=== PATIENT | male | born 1975 | race African-American/Black ===

== ENCOUNTER 2020-05-06 11:20 | Outpatient (CLI) | payer MEDICARE, SELFPAY ==
--- NOTE | ~2020-05-06 | XR_ITS ---
EXAMINATION: XR elbow RT min 3V DATE: 05/06/2020 11:53 INDICATION: Right elbow pain. TECHNIQUE: 4 views of right elbow were obtained. COMPARISON: None. FINDINGS: Bone alignment is normal. No fracture. There is mild elbow joint osteoarthritis characteriz ed by an osteophyte of proximal ulna. There is no elbow joint effusion. IMPRESSION: 1. Mild elbow joint osteoarthritis. Reviewed, dictated and finalized at location A. IFIED PERSONAL CHEF
== END 2020-05-06 11:21 | disposition home or self-care (01) ==
DX: M25.521 Pain in right elbow (principal); M19.021 Primary osteoarthritis, right elbow
CPT/HCPCS: 73080

== ENCOUNTER 2021-01-17 15:55 | Emergency (ER) | payer MEDICARE, SELFPAY ==
[2021-01-17 16:03] VITALS: BP 155/85; PULSE 57; RESP 16; TEMP 36.3; O2SAT 99
--- NOTE | 2021-01-17 16:24 | ED.ABDPAIN ---
HPI - Abdominal Pain General Chief Complaint: Abdominal Pain Stated Complaint: abd pain /vomiting Time Seen by Provider: 01/17/21 16:30 Source: patient and RN notes reviewed Mode of arrival: ambulatory Limitations: no limitations History of Present Illness HPI narrative: 45-year-old male presents with concern for acute vomiting and diarrhea. Reports symptoms started overnight. Reports he has been taking Zofran at home with no relief of vomiting. Reports he has been trying to drink Pedialyte, but continues to vomit. He denies decreased urine output. He denies abdominal pain. He denies fever. He denies upper respiratory symptoms. He reports he ate out at a restaurant yesterday, ate a burrito. Denies hemoptysis. Reports he has been vaccinated for Covid, denies known sick contacts. MD elicited complaint: other (Vomiting) Related Data Allergies Allergy/AdvReac Type Severity Reaction Status Date / Time No Known Allergies Allergy Verified 01/17/21 16:44 Review of Systems Review of Systems: CONSTITUTIONAL: Denies malaise, chills, sweats, or fever. ENT: Denies rhinorrhea, congestion, sinus pain, otalgia or sore throat. CARDIOVASCULAR: Denies chest pain, palpitations, or edema. RESPIRATORY: Denies cough or dyspnea. GASTROINTESTINAL: Denies abdominal pain, bloody, or mucous stools. Reports nausea, vomiting, dry heaving, diarrhea, MUSCULOSKELETAL: Denies myalgia. NEUROLOGIC: Denies headache. All systems reviewed & are unremarkable except as noted in HPI and below PMFSH Comments At time of signature, agree with nursing past medical, surgical, social and family history. There is no relevant family history pertinent to the presenting complaint Exam Narrative: GENERAL: Well-appearing, well-nourished, and in no acute distress. HEAD: Normocephalic, atraumatic. EYES: PERRLA, conjunctivae clear ENT: Nares clear. Mucous membranes moist. NECK: Supple. No lymphadenopathy CHEST: Speaks in full sentences. No respiratory distress. HEART: Regular rate and rhythm. ABDOMEN: Soft, flat, nondistended. No guarding, rebound tenderness, or rigid. Bowel sounds present in all four quadrants. SKIN: Warm, dry, no rash. NEURO: Alert and oriented x3. PSYCH: Normal mood and affect Course Course Emergency Course: Patient is aware of diagnosis, understands and agrees to treatment plan. Anticipatory guidance given. Patient agrees to follow-up as directed and is aware of reasons to seek care at the emergency department. Portions of this record may have been created with voice recognition software Vital Signs Vital signs: Vital Signs Temperature 97.3 F L 01/17/21 16:03 Pulse Rate 57 L 01/17/21 16:03 Respiratory Rate 16 01/17/21 16:03 Blood Pressure 155/85 H 01/17/21 16:03 Pulse Oximetry 99 01/17/21 16:03 Temperature 97.3 F L 01/17/21 16:03 Pulse Rate 57 L 01/17/21 16:03 Respiratory Rate 16 01/17/21 16:03 Blood Pressure 155/85 H 01/17/21 16:03 Pulse Oximetry 99 01/17/21 16:03 Reviewed. MDM - Abdominal Pain MDM Narrative Medical decision making narrative: No evidence of pancreatitis, AAA, cholecystitis, choledocholithiasis, cholangitis, mesenteric ischemia, small bowel obstruction, diverticulitis, colitis, appendicitis, or pelvic etiology such as testicular torsion. Patient has no history of peptic ulcer, H. pylori, chronic aspirin NSAID or corticosteroid use, chronic alcohol use, no history of inflammatory bowel disease, no history of active abdominal infection or malignancy. Patient has no history of hernia or intra-abdominal surgeries, patient denies absence of flatus, constipation, melena, hematemesis. Patient denies post-prandial pain. No pain-out of proportion. Exam findings show no acute concerns or changes; patient is non-toxic appearing and is in no distress. Patient is appropriate for outpatient treatment and follow-up. Critical Care Time Critical Care Time Critical Care Time: No Discharge Plan Dis
[2021-01-17] MEDS: PROMETHAZINE HCL 25 MG/ML AMPUL IM (16:46)
== END 2021-01-17 17:11 | disposition home or self-care (01) ==
PROVIDERS: Emergency Provider Nurse Practitioner
DX: R11.2 Nausea with vomiting, unspecified (principal)
CPT/HCPCS: 96372; 99213; G0463; J2550

== ENCOUNTER 2022-06-15 14:59 | Emergency (ER) | payer OTHER, MEDICARE, SELFPAY ==
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
[2022-06-15 15:14] VITALS: BP 126/85; PULSE 61; RESP 14; TEMP 36.4; O2SAT 100
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
== END 2022-06-15 16:55 | disposition home or self-care (01) ==
PROVIDERS: Emergency Provider Nurse Practitioner Family
DX: M25.562 Pain in left knee (principal); M54.50 Low back pain, unspecified
CPT/HCPCS: 72100; 73564; 99214; G0463

== ENCOUNTER 2022-10-02 07:27 | Outpatient (CLI) | payer MEDICARE, SELFPAY ==
--- NOTE | ~2022-10-02 | MR_ITS ---
EXAMINATION: MR lumbar spine wo con DATE: 10/02/2022 08:08 INDICATION: Low back pain. Bilateral leg numbness and pain. TECHNIQUE: Magnetic resonance imaging (MRI) of the lumbar spine was performed without intravenous con trast. Sequences included sagittal T2-weighted FSE, sagittal T2-weighted FS FSE, sagittal T1-weighted FSE, and axial T2-weighted FSE. COMPARISON: Lumbar spine MRI 07/21/2017 FINDINGS: There is 9 degrees levocurvature of lumbar spine. Vertebral body heights are normal. There are changes of anterior fusion procedure at L4-L5 with interbody device and anterior plate and screws . There is mildly decreased disc height at L2-L3 with endplate remodeling. The distal spinal cord sig nal intensity is normal. The conus medullaris is at T11-T12. The following disc levels are specifical ly discussed: L1-L2: The disc does not extend beyond the endplate margin. There is mild bilateral facet joint osteo arthritis. There is no neural foraminal stenosis. There is no central canal stenosis. L2-L3: The disc is bulging and has an annular fissure. There is mild bilateral facet joint osteoarthr itis. There is mild bilateral neural foraminal stenosis. There is mild central canal stenosis. L3-L4: The disc does not extend beyond the endplate margin. There is mild bilateral facet joint osteo arthritis. There is no neural foraminal stenosis. There is no central canal stenosis. L4-L5: There is severe bilateral facet joint osteoarthritis. There is mild bilateral neural foraminal stenosis. There is no central canal stenosis. L5-S1: There is a right foraminal protrusion with annular fissure. There is moderate bilateral facet joint osteoarthritis. There is mild bilateral neural foraminal stenosis. There is no central canal st enosis. IMPRESSION: 1. Mild lumbar spondylosis, worsened from 07/21/2017. 2. Anterior fusion procedure at L4-L5. Reviewed, dictated and finalized at location A.
== END 2022-10-02 07:28 | disposition home or self-care (01) ==
PROVIDERS: Visit Provider Nurse Practitioner Acute Care
DX: M47.26 Other spondylosis with radiculopathy, lumbar region (principal); M51.36 Other intervertebral disc degeneration, lumbar region; Z98.1 Arthrodesis status
CPT/HCPCS: 72148

== ENCOUNTER 2022-12-19 08:23 | Emergency (ER) | payer MEDICARE, SELFPAY ==
--- NOTE | 2022-12-19 08:24 | ED.NAVMDI ---
HPI - Nausea/Vomiting/Diarrhea General Chief complaint: Nausea/Vomiting/Diarrhea Stated complaint: Nausea/Vomiting Time Seen by Provider: 12/19/22 08:24 Source: patient Mode of arrival: ambulatory Limitations: no limitations History of Present Illness HPI Narrative: Jose Roberto is a 47-year-old male patient presenting to the clinic today with complaints nausea, vomiting, and diarrhea that just began this morning. He reports no fever, chills, body aches, or abdominal pain. Took 4 mg of ODT Zofran this morning and that did not help the symptoms. Reports that the Zofran is 2 years old. Has had this happen before and was given prescription for Zofran and and improved after a few days. He is currently dry heaving while in the clinic today. History of having bradycardia. He denies any chest pain, shortness of breath, visual changes, dizziness, or near syncopal symptoms. Related Data Allergies Allergy/AdvReac Type Severity Reaction Status Date / Time No Known Allergies Allergy Verified 06/15/22 15:14 Review of Systems Review of Systems: Pertinent positives per HPI. Patient denies any fever, chills, rash, headache, visual changes, dizziness, cough, runny nose, sore throat, shortness of breath, chest pain, palpitations, constipation, abdominal pain, or any urinary issues. PMFSH Surgical History Surgical History H/O cervical spine surgery H/O elbow surgery H/O knee surgery H/O lumbosacral spine surgery Comments At the time of my signature, I reviewed and agree with the nursing past medical, surgical, social, and family history. There is no relevant family history pertinent to the patient complaint. Exam Narrative: General: Well-developed, well nourished, ill-pale appearing. Head: Normocephalic, atraumatic. Cardio: Bradycardic- regular rate and rhythm, s1 and s2 normal, no murmur appreciated. Resp: Clear to auscultation bilaterally, no rhonchi, rales, wheezing or rubs. Abdomen: Soft, pliable, nondistended, bowel sounds hyperactive- present in all quadrants, non-tender to palpation, no organomegly, no CVAT tenderness. Course Course Emergency Course: Portions of this record may have been created with voice recognition software. Level of Care: Express Care Visit Vital Signs Vital signs: Vital Signs Temperature 35.3 C L 12/19/22 08:34 Pulse Rate 47 L 12/19/22 08:34 Respiratory Rate 20 12/19/22 08:34 Blood Pressure 152/84 H 12/19/22 08:34 Pulse Oximetry 100 12/19/22 08:34 Oxygen Delivery Room Air 12/19/22 08:34 Temperature 36.4 C L 12/19/22 09:19 Pulse Rate 44 L 12/19/22 09:19 Respiratory Rate 20 12/19/22 09:19 Blood Pressure 140/68 12/19/22 09:19 Pulse Oximetry 99 12/19/22 09:19 Oxygen Delivery Room Air 12/19/22 09:19 Vital signs reviewed MDM - Nausea/Vomiting/Diarrhea MDM Narrative Medical decision making narrative: At the time of visit patient is resting comfortably on exam table. COVID and influenza testing was completed and negative in the clinic today. Patient has already taken 4 mg of Zofran and this morning prior to arrival. Patient has a ride home. Will give 25 mg IM of promethazine. Patient still having some nausea but not actively vomiting/dry heaving in the clinic. Patient still slight pale. VS stable. Offered to send to the ED for further evaluation/fluids and he declined at this time. Will send a new prescription for Zofran. Supportive measures were discussed with the patient he voiced understanding discharge instructions and agrees to treatment plan. Differential Diagnosis Differential diagnosis: Likely food poisoning, gastroenteritis, dehydration and other (Acute nausea and vomiting) Lab Data Labs: Lab Results 12/19/22 Range/Units 08:50 POC SARS CoV-2 Ag Negative (Negative) Influenza A Screen Negative Reference Range
[2022-12-19 08:34] VITALS: BP 152/84; PULSE 47; RESP 20; TEMP 35.3; O2SAT 100
[2022-12-19] MEDS: PROMETHAZINE HCL 25 MG/ML AMPUL IM (08:51)
[2022-12-19 09:19] VITALS: BP 140/68; PULSE 44; RESP 20; TEMP 36.4; O2SAT 99
== END 2022-12-19 09:45 | disposition home or self-care (01) ==
PROVIDERS: Emergency Provider Nurse Practitioner Family
DX: K52.9 Noninfective gastroenteritis and colitis, unspecified (principal); Z20.822 Contact with and (suspected) exposure to COVID-19
CPT/HCPCS: 87426; 87804; 96372; 99213; C9803; G0463; J2550

== ENCOUNTER 2024-08-17 10:49 | Outpatient (CLI) | payer MEDICARE, SELFPAY ==
--- NOTE | ~2024-08-17 | MR_ITS ---
MRI of the left knee Clinical history: Pain Technique: Coronal proton density and proton density-weighted images, sagittal proton-density and T2 fat-sat images, and axial proton-density fat-saturated images were acquired. Findings: Anterior and posterior cruciate ligaments are intact. Medial collateral ligament and the la teral collateral ligament complex are intact. Popliteus tendon is intact. There is large oblique flap tear of the posterior horn of the medial meniscus extending to the body s egment. Lateral meniscus intact. There is mild to moderate patchy chondromalacia of the lateral patellar facet. Remaining articular ca rtilage in the knee is well preserved. Extensor mechanism is intact. Small joint effusion present with small Egan's cyst. Impression: Oblique flap tear of the medial meniscus, as detailed above. Mild chondromalacia of the patella. Small joint effusion with small Egan's cyst. Reviewed, dictated and finalized at [facility]. Impression: Oblique flap tear of the medial meniscus, as detailed above. Mild chondromalacia of the patella. Small joint effusion with small Egan's cyst.
--- OUTSIDE RECORDS SUMMARY | 2024-08-17 10:54 | XMS_ITS | Clinical Summary ---
Author Organization [facility] Address [address] [place] [address] Care Team Providers Care Blow Torch Burner Name Role Phone Unavailable Primary Care Provider Unavailabl e Source Comments [facility],non-owned Affiliates and Associated Physician Practices is amultiple site organization consisting of ambulatory clinics and hospital sitesin [place], [place], [place] and [place]. This disclosure is being madepursuant to the Care Everywhere program and may not contain all information available regarding this patient. Last updated 18.[facility] Allergies No known active allergies Medications * Be aware that medications may not be up to date on this document. Alwaysverify current medications with the patient. 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 Gender Identity Not on file Sexual Orientation Not on file Last Filed Vital Signs Vital Sign Reading Time Taken Comments Blood Pressure 139/87 08/25/2015 8:59 PM CDT Pulse 86 08/25/2015 8:59 PM CDT Temperature 36.7 C (98 F) 08/25/2015 8:59 PM CDT Respiratory Rate 18 08/25/2015 8:59 PM CDT Oxygen Saturation 99% 08/25/2015 8:59 PM CDT Inhaled Oxygen Concentration - - Weight 99.8 kg (220 lb) 08/25/2015 6:46 PM CDT Height 175.3 cm (5' 9 ) 08/25/2015 6:46 PM CDT Body Mass Index 32.49 08/25/2015 6:46 PM CDT Plan of Treatment Health Maintenance Due Date Last Done Comments COLOGUARD (AGES 45-75) - COL ON CA SCREENING 1974 COLON MONITORING 1974 COLONOSCOPY - COLON CA SCREENING 1974 CT COLONOGRAPHY - COLON CA SCREENING 1974 Colorectal Cancer Screening 1974 FIT - COLON CA SCREENING 1974 FLEX SIG - COLON CA SCREENING 1974 LIPID TESTING 1974 HIV SCREENING 1989 HEPATITIS C SCREENING 02/06/1992 DTAP/TDAP/TD VACCINES (1 - Tdap) 1993 HEPATITIS B VACCINE (1 of 3 - 19+ 3-dose series) 1993 COVID-19 VACCINE (1 - 2023-2 5 season) 2023 PNEUMOCOCCAL VACCINE 50+ (1 of 1 - PCV) 02/11/2024 ZOSTER VACCINE (1 of 2) 02/11/2024 DEPRESSION SCREENING 04/24/2024 INFLUENZA VACCINE (Season Ended) 2024 HIB VACCINE Aged Out No longer eligi ble based on patient's age to complete this topic HPV VACCINE Aged Out No longer eligi ble based on patient's age to complete this topic MENINGOCOCCAL (Group B) VACC INE SHARED DECISION-MAKING Aged Out No longer eligibl e based on patient's age to complete this topic MENINGOCOCCAL GROUPS A/C/Y/W VACCINE Aged Out No longer eligible b ased on patient's age to complete this topic Insurance MEDICARE
--- OUTSIDE RECORDS SUMMARY | 2024-08-17 10:54 | XMS_ITS | Continuity of Care Document ---
Author Organization [employer] [place] Address [address] [place] [address] [address] [place] [address] Phone Care Team Providers Care Cap Coverer Name Role Phone Darell Hutton Unavailable Unavailable Procedures Procedure Date Therapeutic Exercise Manual Therapy Hot or Cold Pack Dry Needling 1-2 muscles PT Evaluation Moderate Complexity Neuromuscular Re-Ed Dry Needling 1-2 muscles Progress Note Therapeutic Activities Neuromuscular Re-Ed Therapeutic Exercise Manual Therapy Therapeutic Activities Therapeutic Exercise Manual Therapy Therapeutic Activities Neuromuscular Re-Ed Therapeutic Exercise Manual Therapy Therapeutic Activities Neuromuscular Re-Ed Therapeutic Exercise Manual Therapy Therapeutic Activities Neuromuscular Re-Ed Therapeutic Exercise Manual Therapy Therapeutic Activities Neuromuscular Re-Ed Therapeutic Exercise Manual Therapy Therapeutic Activities Neuromuscular Re-Ed Therapeutic Exercise Manual Therapy Therapeutic Activities Neuromuscular Re-Ed Therapeutic Exercise Manual Therapy Therapeutic Activities Neuromuscular Re-Ed Therapeutic Exercise Manual Therapy Therapeutic Activities Neuromuscular Re-Ed Therapeutic Exercise Neuromuscular Re-Ed Therapeutic Exercise PT Evaluation Moderate Complexity Neuromuscular Re-Ed Therapeutic Exercise Therapeutic Activities Therapeutic Exercise Manual Therapy Dry Needling 1-2 muscles Therapeutic Activities Therapeutic Exercise Manual Therapy Therapeutic Activities Neuromuscular Re-Ed Therapeutic Exercise Manual Therapy Therapeutic Activities Therapeutic Exercise Manual Therapy Therapeutic Activities Therapeutic Exercise Manual Therapy Therapeutic Activities Neuromuscular Re-Ed Therapeutic Exercise Manual Therapy Therapeutic Activities Neuromuscular Re-Ed Therapeutic Exercise Manual Therapy Therapeutic Activities Therapeutic Exercise Manual Therapy Therapeutic Activities Neuromuscular Re-Ed Therapeutic Exercise Manual Therapy Therapeutic Activities Neuromuscular Re-Ed Therapeutic Exercise Manual Therapy Therapeutic Activities Therapeutic Exercise Manual Therapy Therapeutic Activities Therapeutic Exercise Manual Therapy Therapeutic Activities Therapeutic Exercise Manual Therapy Therapeutic Activities Therapeutic Exercise Manual Therapy Therapeutic Activities Neuromuscular Re-Ed Therapeutic Exercise Manual Therapy Therapeutic Activities Neuromuscular Re-Ed Therapeutic Exercise Manual Therapy Therapeutic Activities Neuromuscular Re-Ed Therapeutic Exercise Manual Therapy Therapeutic Activities Neuromuscular Re-Ed Therapeutic Exercise Manual Therapy Dry Needling 1-2 muscles Therapeutic Activities Neuromuscular Re-Ed Therapeutic Exercise Manual Therapy Neuromuscular Re-Ed Therapeutic Exercise Manual Therapy Hot or Cold Pack Dry Needling 3 or more muscles Therapeutic Activities Neuromuscular Re-Ed Therapeutic Exercise Manual Therapy Dry Needling 1-2 muscles Therapeutic Activities Neuromuscular Re-Ed Therapeutic Exercise Manual Therapy Therapeutic Activities Neuromuscular Re-Ed Therapeutic Exercise Dry Needling 1-2 muscles Therapeutic Activities Neuromuscular Re-Ed Manual Therapy Therapeutic Exercise Dry Needling 1-2 muscles PT Evaluation Moderate Complexity Therapeutic Exercise Neuromuscular Re-Ed Dry Needling 1-2 muscles Therapeutic Activities Neuromuscular Re-Ed Therapeutic Exercise Manual Therapy Therapeutic Activities Neuromuscular Re-Ed Therapeutic Exercise Dry Needling 1-2 muscles Therapeutic Activities Neuromuscular Re-Ed Therapeutic Exercise Manual Therapy Therapeutic Activities Neuromuscular Re-Ed Therapeutic Exercise Therapeutic Activities Neuromuscular Re-Ed Therapeutic Exercise Therapeutic Activities Neuromuscular Re-Ed Therapeutic Exercise Manual Therapy Dry Needling 1-2 muscles Therapeutic Activities Neuromuscular Re-Ed Therapeutic Activities Neuromuscular Re-Ed Therapeutic Activities Neuromuscular Re-Ed Therapeutic Activities Neuromuscular Re-Ed Therapeutic Activities Neuromuscular Re-Ed Therapeutic Exercise Manual Therapy PT Evaluation Moderate Complexity Neuromuscular Re-Ed Therapeutic Exercise Advance Directives Directive Yes / No Effective Date File Name No Information Encounters Encounter Description Practice Location Reason(s) For Visit Diagnoses Date Provider Providers Copied on Encounter [facility], [id number], tel:[phone] [place] No Information Jul- Analilia Hightower [address] [facility], [address], [place], [place], [facility] [place], [place]. tel:[phone] [facility], [id number], tel:[phone] [place] No Information Apr-0 5 Analilia Hightower [address] [facility], [address], [place], [address], [place]. tel:[phone] Referring Provider: Maryellen Rangel [address] [place], [address]. tel:[phone] [address], [place], [place], [address], [place] tel:[phone] [place] No Information 0 5 Analilia Lozoya. [address] [facility], [address], [place], [address], [place]. tel:[phone] Referring Provider: Maryellen Rangel [address] [place], [address]. tel:[phone], [place], [place], [address], [place] tel:[phone] [place] No Information 4 Hodges Eva. . Referring Provider: Sergio Miller, [address] [place] [address], [address]. tel:[phone] [address], [place], [place], [id number], [place] tel:[phone] [place] No Information 0 4 Hodges Eva. . Referring Provider: Sergio Miller, [address] [place] [address], [address]. tel:[phone], [place], [place], [address], [place] tel:[phone] [place] No Information 0 4- 4 Hodges Eva. . Referring Provider: Sergio Miller, [address] [place] [address], [address]. tel:[phone] [address], [place], [place], [address], [place] tel:[phone] [place] No Information Dec-3 0-202 4 Hodges Eva. . Referring Provider: Sergio Miller, [address] [address], [place], [address]. tel:[phone] [facility], [address], [place], [place], [address], [place] tel:[phone] [place] No Information Sep-2 4 Hodges Eva. . Referring Provider: Sergio Miller, [address] [place] [address], [place], [address]. tel:[phone] [facility], [address], [place], [place], [address], [place] tel:[phone] [place] No Information Sep-2 4 Hodges Eva. . Referring Provider: Sergio Miller, [address] [place] [address], [place], [address]. tel:[phone] [facility], [address] [facility], [place], [place], [address], [place] tel:[phone] [place] No Information Sep-2 0 4 Hodges Eva. . Referring Provider: Sergio Miller, [address] [place] [address], [place], [address]. tel:[phone] [facility], [address], [place], [place], [address], [place] tel:[phone] [place] No Information Sep-1 4 Porsche Elias. . Referring Provider: Sergio Miller, [address] [place] [address], [place], [address]. tel:[phone] [facility], [address], [place], [place], [address], [place] tel:[phone] [place] No Information Sep-1 4 Porsche Elias. . Referring Provider: Sergio Miller, [address] [place] [address], [place], [address]. tel:[phone] [facility], [place], [place], [address], [place] tel:[phone] [place] No Information Sep-0 9-202 4 Porsche Elias. . Referring Provider: Sergio Miller, [address] [place] [address], [place], [address]. tel:[phone] [facility], [address] [facility], [place], [place], [address], [place] tel:[phone] [place] No Information Sep-0 6-202 4 Porsche Elias. . Referring Provider: Sergio Miller, [address] [place] [address], [place], [address]. tel:[phone] [facility] [address] [place], [place] [address], [place], [place], [address], [place] tel:[phone] [place] No Information Sep-0 4-202 4 Porsche Elias. . Referring Provider: Sergio Miller, [address] [place] [address], [place], [address]. tel:[phone] [facility] [address] [facility], [place], [address], [place] tel:[phone] [place] No Information Mar-2 8-202 4 Muehl Darell. [address] [facility], [address], [place], [place], [facility] [place], [place]. tel:[phone] [address], [place], [place], [address], [place] tel:[phone] [place] No Information Mar-2 6-202 4 Muehl Darell. [address] [facility], [address], [place], [address], [place]. tel:[phone] [facility] [address] [place], [place] [address], [place], [place], [address], [place] tel:[phone] [place] No Information Mar-1 2-202 4 Muehl Darell. [address] [facility], [address], [place], [facility] [place], [place]. tel:[phone] [facility] [address], [place], [address], [place] tel:[phone] [place] No Information Mar-0 7- 4 Muehl Darell. [address] [facility], [address], [place], [facility] [place], [place]. tel:[phone] [facility] [address], [place], [place], [address], [place] tel:[phone] [place] No Information Mar-0 5-202 4 Muehl Darell. [address] [place] [address], [address], [place], [address], [place]. tel:[phone], [place], [place], [address], [place] tel:[phone] [place] No Information Feb-2 9 4 Muehl Darell. [address] [place] [address], [address], [place], [facility] [place], [place]. tel:[phone] [facility] [address], [place], [place], [address], [place] tel:[phone] [place] No Information Feb-2 7 4 Muehl Darell. [address] [place] [address], [address], [place], [facility] [place], [place]. tel:[phone], [place], [place], [address], [place] tel:[phone] [place] No Information Feb-2 3-202 4 Muehl Darell. [address] [place] [address], [address], [place], [facility] [place], [place]. tel:[phone] [facility] [address], [place], [place], [address], [place] tel:[phone] [place] No Information Feb-2 0-202 4 Muehl Darell. [address] [place] [address], [address], [place], [facility], [place]. tel:[phone], [place], [place], [address], [place] tel:[phone] [place] No Information 1 - 4 Muehl Darell. [address] [facility], [address], [place], [address], [place]. tel:[phone] [facility] [address], [place], [place], [address], [place] tel:[phone] [place] No Information 1 3 4 Muehl Darell. [address] [place] [address], [address], [place], [address], [place]. tel:[phone] [facility] [address], [place], [place], [address], [place] tel:[phone] [place] No Information b-0 8 4 Muehl Darell. [address] [place] [address], [address], [place], [address], [place]. tel:[phone] [facility] [address], [place], [address], [place] tel:[phone] [place] No Information 0 4 Muehl Darell. [address] [place] [address], [address], [place], [address], [place]. tel:[phone], [place], [place], [address], [place] tel:[phone] [place] No Information 0 4 Muehl Darell. [address] [place] [address], [address], [place], [address], [place]. tel:[phone] [facility] [address], [place], [place], [address], [place] tel:[phone] [place] No Information 4 Muehl Darell. [address] [place] [address], [address], [place], [address], [place]. tel:[phone], [place], [place], [address], [place] tel:[phone] [place] No Information 4 Muehl Darell. [address] [facility], [address], [place], [address], [place]. tel:[phone] [facility] [address], [place], [place], [address], [place] tel:[phone] [place] No Information 4 Muehl Darell. [address] [place] [address], [address], [place], [address], [place]. tel:[phone] [facility] [address] [place], [place] [address], [place], [place], [address], [place] tel:[phone] [place] No Information 4 Muehl Darell. [address] [place] [address], [address], [place], [address], [place]. tel:[phone] [facility] [address] [place], [place] [address], [place], [place], [address], [place] tel:[phone] [place] No Information 4 Francisca Haines. . [facility] [address], [place], [place], [address], [place] tel:[phone] [place] No Information 4 Muehl Darell. [address] [place] [address], [address], [place], [address], [place]. tel:[phone], [place], [place], [address], [place] tel:[phone] [place] No Information - 4 Muehl Darell. [address] [place] [address], [address], [place], [address], [place]. tel:[phone] [facility] [address], [place], [place], [address], [place] tel:[phone] [place] No Information Gregg-0 2-202 4 Muehl Darell. [address] [facility], [address], [place], [address], [place]. tel:[phone], [place], [place], [address], [place] tel:[phone] [place] No Information Dec-2 8-202 3 Muehl Darell. [address] [place] [address], [address], [place], [address], [place]. tel:[phone], [place], [place], [address], [place] tel:[phone] [place] No Information Dec-2 - 3 Muehl Darell. [address] [place] [address], [address], [place], [address], [place]. tel:[phone], [place], [place], [address], [place] tel:[phone] [place] No Information Dec-1 9- 3 Muehl Darell. [address] [place] [address], [address], [place], [address], [place]. tel:[phone], [place], [place], [address], [place] tel:[phone] [place] No Information May-2 6- 3 Muehl Darell. [address] [place] [address], [address], [place], [address], [place]. tel:[phone], [place], [place], [address], [place] tel:[phone] [place] No Information May-2 2-202 3 Muehl Darell. [address] [place] [address], [address], [place], [address], [place]. tel:[phone], [place], [place], [address], [place] tel:[phone] [place] No Information August-1 9- 3 Muehl Darell. [address] [place] [address], [address], [place], [address], [place]. tel:[phone] [facility] [address] [facility] [facility], [place], [place], [address], [place] tel:[phone] [place] No Information May-1 5- 3 Muehl Darell. [address] [place] [address], [address], [place], [address], [place]. tel:[phone] [facility] [address] [facility], [place], [place], [address], [place] tel:[phone] [place] No Information May-1 2-202 3 Muehl Darell. [address] [place] [address], [address], [place], [address], [place]. tel:[phone] [facility] [address] [facility], [place], [place], [address], [place] tel:[phone] [place] No Information May-0 9- 3 Muehl Darell. [address] [place] [address], [address], [place], [address], [place]. tel:[phone] [facility] [address] [facility], [place], [place], [address], [place] tel:[phone] [place] No Information May-0 5-202 3 Modglin Erik. . [facility] [facility] [address], [place], [place], [address], [place] tel:[phone] [place] No Information May-0 2-202 3 Dellamano Zaki. . [facility] [facility], [place], [place], [address], [place] tel:[phone] [place] No Information Apr-2 8- 3 Dellamano Zaki. . [facility] [facility], [place], [place], [address], [place] tel:[phone] [place] No Information Apr-2 7-202 3 Muehl Darell. [address] [place] [address], [address], [place], [facility], . tel:[phone] [address] [facility] [address], [place], [place], [address], tel:[phone] [place] No Information 3 Analilia Lozoya. [address] [facility], [facility] [address], [place], [facility], . tel:[phone], [place], [place], [address], tel:[phone] [place] No Information 3 Analilia Lozoya. [address] [facility], [facility] [address], [place], [place], [facility], . tel:[phone] Family History Family Member Type Diagnosis Age At Onset No Information Payers Payer name Insurance type Covered libertarian ID Authoriza tishravan(s) [facility] [employer] [place] [id number] Social History Type Description Quantity Date Captured Comments Sex Male Smoking Status No Information Chief Complaint And Reason For Visit No Information Reason For Referral Reason For Referral No Information Plan Of Treatment Date Type Action Status Referral Ordered: Referrals: Specialist. Evaluate and Treat (related to Adjustment disorder with depressed mood) ordered Referral Ordered: Depression: Depression management program timeframe: 1 Day. (related to Depression) ordered Referral Ordered: Clinical Psychology (related to Depression) ordered Appointment Jose Roberto Barrett Do Lenz 08/21 BOOKED History Of Present Illness Encounter Date Complaint History Of Prese nt Illness No Information Functional Status Date Functional Assessmen t No Information Instructions Date Instruction Additional Infor mation Dietary needs education Related to Overweight Prescribed activity/exercise edu cation Related to Overweight Assessments Type Assessment Date No Information Patient Care Teams Name Effective Dates (start - stop) Status Members No Information
--- OUTSIDE RECORDS SUMMARY | 2024-08-17 10:54 | XMS_ITS | Patient Health Record ---
Author Organization [facility] Address [address] [place] [address] Care Team Providers Care Green Building Engineer Name Role Phone Soniya Beauchamp MD Primary Care Provider Jose Daniel Patrick Unavailable [phone] Philly Amanda Unavailable [phone] Migration, Provider Unavailable Unavailable Raudel Roman Unavailable [phone] Allergies No Known Allergies Reason For Referral No Information Medications Medication SIG (Take, Route, Frequency, Duration) Notes Start Date End Date Status Spravato (84 MG Dose) 28 MG/DEVICE 3 sprays in each nostril Nasally every two week for 1 days Active Rosuvastatin Calcium 10 MG Oral for 90 Days Not-Taking Immunizations Vaccine Route Administration Date Status Comme nts Novel [id number], preservative free Unknown 04/20/2021 Administered [employer] Covid-19 Vac cine 2nd dose Unknown 04/20/2021 Administered Social History Tobacco Use: Social History Observation Description Date Details (start date - stop date) Never Smoker NA - NA Sex Assigned At : Social History Observation Description Sex Assigned At Male Household Question Answer Notes Number of adults in household: 1 Tobacco Control (Standard) Question Answer Notes Tobacco use: Nonsmoker Problems Problem Type SNOMED Code ICD Code Onset Dates Problem Status W/U Status Risk Notes Problem Severe recurrent major depression without psychotic features (57734304) Major depressive disorder, recurrent severe without psychotic features (F33.2) Active confirmed Problem Generalized anxiety disorder (21620126) Generalized anxiety disorder (F41.1) Active confirmed Problem Posttraumatic stress disorder (08402539) Post-traumatic stress disorder, chronic (F43.12) Active confirmed Problem 09414587 MDD (recurrent major depressive disorder) in remission (F33.40) Active confirmed Problem 401651050 Marijuana use (F12.90) Active confirmed Problem 99537832 MDD (major depressive disorder), recurrent, in partial remission (F33.41) Active confirmed Vital Signs Heart Rate 103 /min 07/24/2024 Height-cm 175.26 cm 07/24/2024 Oximetry 98 % 07/24/2024 Blood pressure diastolic 89 mm Hg 07/24/2024 Weight-kg 76.3 kg 07/03/2024 Height 69.00 in 07/24/2024 Blood pressure systolic 98 mm Hg 07/24/2024 Weight 168.2 lbs 07/03/2024 BMI 24.84 kg/m2 07/03/2024 Encounters Encounter Location Date Provider Diagnosis [facility] [address] [place] [address] 09/01/2023 Jose Daniel Shiraz Major depressive disorder, recurrent severe without psychotic features F33.2 [facility] [address] [facility] [address] [place] [address] 09/28/2023 Jose Daniel Shiraz Major depressive disorder, recurrent severe without psychotic features F33.2 [facility] [address] [place] [address] 11/08/2023 Jose Daniel Shiraz Major depressive disorder, recurrent severe without psychotic features F33.2 and Generalized anxiety disorder F41.1 [facility] [address] [place] [address] 11/15/2023 Raudel Clubb Major depressive disorder, recurrent severe without psychotic features F33.2 [facility] [address] [place] [address] 11/22/2023 Raudel Clubb Major depressive disorder, recurrent severe without psychotic features F33.2 [facility] [address] [place] [address] 11/29/2023 Raudel Clubb Major depressive disorder, recurrent severe without psychotic features F33.2 [facility] [address] [place] [address] 12/06/2023 Raudel Clubb Major depressive disorder, recurrent severe without psychotic features F33.2 [facility], [facility] [address] [place] [address] 12/13/2023 Raudel Clubb Major depressive disorder, recurrent severe without psychotic features F33.2 [facility], [facility] [address] [place] [address] 12/20/2023 Raudel Clubb Major depressive disorder, recurrent severe without psychotic features F33.2 [facility], [facility] [address] [place] [address] 12/27/2023 Raudel Clubb Major depressive disorder, recurrent severe without psychotic features F33.2 [facility], [facility] [address] [place] [address] 01/05/2024 Jose Daniel Shiraz Major depressive disorder, recurrent severe without psychotic features F33.2 ; Generalized anxiety disorder F41.1 and Post-traumatic stress disorder, chronic F43.12 [facility], [facility] [address] [facility] [address] [place] [address] 01/10/2024 Raudel Clubb Recurrent major depressive disorder, in full remission F33.42 [facility], [facility] [address] [facility] [address] [place] [address] 02/09/2024 Jose Daniel Shiraz Major depressive disorder, recurrent severe without psychotic features F33.2 ; Generalized anxiety disorder F41.1 and Post-traumatic stress disorder, chronic F43.12 [facility], [facility] [address] [address] 02/20/2024 Raudel Clubb MDD (major depressiv e disorder), recurrent, in partial remission F33.41 [facility], [facility] [address] [facility] [address] [place] [address] 02/28/2024 Raudel Clubb MDD (major depressiv e disorder), recurrent, in partial remission F33.41 and Marijuana use F12.90 [facility], [facility] [address] [facility] [address] [place] [address] 03/13/2024 Raudel Clubb MDD (recurrent major depressive disorder) in remission F33.40 [facility], [facility] [address] [facility] [address] [place] [address] 03/27/2024 Jose Daniel Shiraz [facility], [facility] [address] [place] [address] 04/10/2024 Philly Amanda Major depressive disorder, recurrent severe without psychotic features F33.2 [facility], [facility] [address] [place] [address] 05/01/2024 Raudel Clubb MDD (recurrent major depressive disorder) in remission F33.40 [facility], [facility] [address] [place] [address] 05/15/2024 Raudel Clubb MDD (recurrent major depressive disorder) in remission F33.40 [facility], [facility] [address] [place] [address] 05/23/2024 Jose Daniel Shiraz Major depressive disorder, recurrent severe without psychotic features F33.2 ; Generalized anxiety disorder F41.1 and Post-traumatic stress disorder, chronic F43.12 [facility], [facility] [address] [place] [address] 05/29/2024 Raudel Clubb [facility], [facility] [address] [place] [address] 06/19/2024 Raudel Clubb Major depressive disorder, recurrent severe without psychotic features F33.2 [facility], [facility] [address] [place] [address] 07/03/2024 Jose Daniel Shiraz Encounter for screening for depression Z13.31 ; Encounter for screening for cardiovascular disorders Z13.6 ; Major depressive disorder, recurrent severe without psychotic features F33.2 ; Generalized anxiety disorder F41.1 and Post-traumatic stress disorder, chronic F43.12 [facility], [facility] [address] [place] [address] 07/10/2024 Raudel Clubb Major depressive disorder, recurrent severe without psychotic features F33.2 ; Encounter for screening for depression Z13.31 and Encounter for screening for cardiovascular disorders Z13.6 [facility], [facility] [address] [place] [address] 07/24/2024 Raudel Clubb Major depressive disorder, recurrent severe without psychotic features F33.2 and Encounter for screening for cardiovascular disorders Z13.6 [facility], [facility] [address] [place] [address] 08/15/2024 Jose Daniel Shiraz [facility], [facility] [address] [place] [address] 07/09/2024 Jose Daniel Shiraz [facility], [facility] [address] [place] [address] 08/23/2023 Provider Migration [facility], [facility] [address] [place] [address] 09/01/2023 Provider Migration [facility], [facility] [address] [place] [address] 09/06/2023 Provider Migration [facility], [facility] [address] [place] [address] 09/07/2023 Provider Migration [facility], [facility] [address] [place] [address] 09/09/2023 Provider Migration [facility], [facility] [address] [place] [address] 09/10/2023 Provider Migration [facility], [facility] [address] [place] [address] 09/13/2023 Provider Migration [facility], [facility] [address] [place] [address] 11/15/2023 Jose Daniel Shiraz Major depressive disorder, recurrent severe without psychotic features F33.2 [facility], [facility] [address] [place] [address] 11/29/2023 Jose Daniel Shiraz Major depressive disorder, recurrent severe without psychotic features F33.2 [facility], [facility] [address] [place] [address] 12/20/2023 Jose Daniel Shiraz Major depressive disorder, recurrent severe without psychotic features F33.2 [facility], [facility] [address] [place] [address] 12/28/2023 Jose Daniel Shiraz [facility], [facility] [address] [place] [address] 01/17/2024 Jose Daniel Shiraz Recurrent major depressive disorder, in full remission F33.42 [facility], [facility] [address] [place] [address] 02/15/2024 Jose Daniel Shiraz [facility], [facility] [address] [place] [address] 03/05/2024 Jose Daniel Shiraz [facility] [address] [place] [address] 07/08/2024 Jose Daniel [facility] [address] [place] [address] 08/14/2024 Jose Daniel [facility] [address] [place] [address] 10/06/2023 Jose Daniel [facility] [address] [place] [address] 04/10/2024 Philly Amanda Major depressive disorder, recurrent severe without psychotic features F33.2 Assessments Encounter Date Diagnosis (ICD Code) Assessment Notes Treatment Notes Treatment Clinical Notes Section Notes 11/29/2023 Major depressive disorder, recurrent severe without psychotic features (ICD-10 - F33.2) 02/28/2024 MDD (major depressive disorder), recurrent, in partial remission (ICD-10 - F33.41) 1. Depression - Patient reports no depression. - Plan: Continue to monitor for mood changes or depressive symptoms during follow-ups. 2. Anxiety - Patient reports experiencing anxiety. - Plan: a. Assess severity and frequency of anxiety symptoms. b. Consider initiating appropriate anxiolytic medication. c. Recommend non-pharmacologic al interventions (e.g., cognitive-behavio ral therapy, relaxation techniques). 3. Suicidal Ideation and Self-harm - Patient denies thoughts of suicide or self-harm. - Plan: Continue monitoring for changes in mental status or emergence of suicidal ideation during follow-ups. 4. Homicidal Ideation - Patient denies thoughts of harming others. - Plan: Continue monitoring for changes in mental status or emergence of homicidal ideation during follow-ups. 5. Psychotic Symptoms - Patient denies experiencing hallucinations, delusions, or paranoia. - Plan: Continue monitoring for changes in mental status or emergence of psychotic symptoms during follow-ups. 6. Appetite - Patient reports normal appetite. - Plan: Continue monitoring for changes in appetite or weight during follow-ups. 7. Sleep - Patient reports normal sleep patterns. - Plan: Continue monitoring for changes in sleep quality or quantity during follow-ups. 8. marijuana use - pt reported marijuana use before and after spravato treatments. - pt is in precontemplation stage of change. plan: discussed the negative effects marijuana use has on mental illness and medication metabolism 9. Physical complaints - pt reports brain zaps during treatment. he reports that he gets these symptoms when at home. - Plan: a. encouraged the patient to make an apt with PCP. b. advised not to use marijuana, as this can have neurological effects, especially during spravato treatment. 01/17/2024 Recurrent major depressive disorder, in full remission (ICD-10 - F33.42) 02/09/2024 Major depressive disorder, recurrent severe without psychotic features (ICD-10 - F33.2) Anxiety - Assessment: Patient reports significant improvement in anxiety levels, stating Yeah, my anxiety is low. - Plan: - Continue current treatment plan. - Encourage patient to practice deep breathing exercises and guided meditation to manage anxiety in triggering situations. Depression - Assessment: Patient denies any current depressive symptoms, stating I don't have no depression or anything like that. - Plan: - Continue monitoring patient's mood and mental health status. Anger Management - Assessment: Patient recognizes the need to improve their reaction to certain situations and is working on managing their anger. Patient reports getting frustrated over minor issues but is learning to control reactions. - Plan: - Encourage patient to continue practicing coping strategies, such as deep breathing exercises and guided meditation, to manage anger in triggering situations. Sleep Disturbance - Assessment: Patient reports poor sleep quality and lack of deep sleep, stating And my sleep is no good. - Plan: - Encourage patient to practice good sleep hygiene, guided meditation, and relaxation techniques to improve sleep quality. - Discussed potential risks and benefits of using sleeping pills, including rebound insomnia, and patient agreed to continue with non-pharmacologic al interventions. Spravato Treatment - Assessment: Patient is currently receiving Spravato once a week and reports improvement in their mental health. - Plan: - Transition patient to Spravato every 10 days until the end of February, followed by a reduction to every 2 weeks. - Patient agrees with the transition plan. - Monitor patient's response to the adjusted treatment schedule and make further adjustments as needed. Follow-up - Plan: - Schedule follow-up appointments for Spravato treatment as discussed. - Continue monitoring patient's mental health status, sleep quality, and response to treatment during subsequent visits. 06/19/2024 Major depressive disorder, recurrent severe without psychotic features (ICD-10 - F33.2) continue current treatment as prescribed by primary psychiatric care provider. 02/20/2024 MDD (major depressive disorder), recurrent, in partial remission (ICD-10 - F33.41) 1. Depression - Patient rates depression as 0/10. - No reported thoughts of suicide or self-harm. - Plan: a. Continue current treatment plan. b. Monitor for any changes in mood or depressive symptoms. 2. Anxiety - Patient rates anxiety as 1/10. - Plan: a. Continue current treatment plan. b. Monitor for any changes in anxiety levels. 3. Sleep - Patient reports getting 8 hours of sleep per night. - Plan: a. Encourage maintaining good sleep hygiene. b. Monitor for any changes in sleep patterns. 4. Appetite - Patient reports a decent appetite and has been cooking more for himself. - Patient notes he's been spoiling himself a little bit with his cooking. - Plan: a. Encourage maintaining a balanced diet and regular meal times. b. Monitor for any changes in appetite or eating habits. 5. Medication - No reported changes in medication. - Plan: a. Continue current medication regimen. b. Monitor for any side effects or need for adjustments. 6. Physical complaints - Patient reports no physical complaints. - Plan: a. Encourage regular exercise and self-care activities. b. Monitor for any new or worsening physical symptoms. 7. Other - No reported hallucinations, delusions, or paranoia. - No thoughts of hurting others. 02/28/2024 Marijuana use (ICD-10 - F12.90) 1. Depression - Patient reports no depression. - Plan: Continue to monitor for mood changes or depressive symptoms during follow-ups. 2. Anxiety - Patient reports experiencing anxiety. - Plan: a. Assess severity and frequency of anxiety symptoms. b. Consider initiating appropriate anxiolytic medication. c. Recommend non-pharmacologic al interventions (e.g., cognitive-behavio ral therapy, relaxation techniques). 3. Suicidal Ideation and Self-harm - Patient denies thoughts of suicide or self-harm. - Plan: Continue monitoring for changes in mental status or emergence of suicidal ideation during follow-ups. 4. Homicidal Ideation - Patient denies thoughts of harming others. - Plan: Continue monitoring for changes in mental status or emergence of homicidal ideation during follow-ups. 5. Psychotic Symptoms - Patient denies experiencing hallucinations, delusions, or paranoia. - Plan: Continue monitoring for changes in mental status or emergence of psychotic symptoms during follow-ups. 6. Appetite - Patient reports normal appetite. - Plan: Continue monitoring for changes in appetite or weight during follow-ups. 7. Sleep - Patient reports normal sleep patterns. - Plan: Continue monitoring for changes in sleep quality or quantity during follow-ups. 8. marijuana use - pt reported marijuana use before and after spravato treatments. - pt is in precontemplation stage of change. plan: discussed the negative effects marijuana use has on mental illness and medication metabolism 9. Physical complaints - pt reports brain zaps during treatment. he reports that he gets these symptoms when at home. - Plan: a. encouraged the patient to make an apt with PCP. b. advised not to use marijuana, as this can have neurological effects, especially during spravato treatment. 01/10/2024 Recurrent major depressive disorder, in full remission (ICD-10 - F33.42) 07/03/2024 Encounter for screening for depression (ICD-10 - Z13.31) 07/10/2024 Major depressive disorder, recurrent severe without psychotic features (ICD-10 - F33.2) continue current treatment as prescribed by primary psychiatric care provider 07/24/2024 Major depressive disorder, recurrent severe without psychotic features (ICD-10 - F33.2) continue current treatment as prescribed by primary psychiatric care provider SPRAVATO can cause serious side effects, including: Sedation, dissociation, and respiratory depression. SPRAVATO may cause sleepiness (sedation), fainting, dizziness, spinning sensation, anxiety, or feeling disconnected from yourself, your thoughts, feelings, space and time (dissociation), and breathing problems (respiratory depression and respiratory arrest). Tell your healthcare provider right away if you feel like you cannot stay awake or if you feel like you are going to pass out. Your healthcare provider must monitor you for serious side effects for at least 2 hours after taking SPRAVATO. Your healthcare provider will decide when you are ready to leave the healthcare setting. Abuse and misuse. There is a risk for abuse and misuse with SPRAVATO, which may lead to physical and psychological dependence. Your healthcare provider should check you for signs of abuse, misuse, and dependence before and during treatment. Tell your healthcare provider if you have ever abused or been dependent on alcohol, prescription medicines, or street drugs. Your healthcare provider can tell you more about the differences between physical and psychological dependence in drug addiction. SPRAVATO Risk Evaluation and Mitigation Strategy (REMS). Because of the risks for sedation, dissociation, respiratory depression, and abuse and misuse, SPRAVATO is only available through a restricted program called the SPRAVATO Risk Evaluation and Mitigation Strategy (REMS) Program. SPRAVATO can only be administered at healthcare settings certified in the SPRAVATO REMS Program. Patients treated in outpatient healthcare settings (such as medical offices and clinics) must be enrolled in the program. Increased risk of suicidal thoughts and actions. Antidepressant medicines may increase suicidal thoughts and actions in some people 24 years of age and younger, especially within the first few months of treatment or when the dose is changed. SPRAVATO is not for use in children. Depression and other serious mental illnesses are the most important causes of suicidal thoughts and actions. Some people may have a higher risk of having suicidal thoughts or actions. These include people who have (or have a family history of) depression or a history of suicidal thoughts or actions. How can I watch for and try to prevent suicidal thoughts and actions in myself or a family member? Pay close attention to any changes, especially sudden changes, in mood, behavior, thoughts, or feelings, or if you develop suicidal thoughts or actions. Tell your healthcare provider right away if you have any new or sudden changes in mood, behavior, thoughts, or feelings, or if you develop suicidal thoughts or actions. Keep all follow-up visits with your healthcare provider as scheduled. Call your healthcare provider between visits as needed, especially if you have concerns about symptoms. Tell your healthcare provider or get emergency help right away if you or your family member have any of the following symptoms, especially if they are new, worse, or worry you: thoughts about suicide or dying new or worse depression feeling very agitated or restless trouble sleeping (insomnia) acting aggressive, being angry or violent an extreme increase in activity and talking (dalton) suicide attempts new or worse anxiety panic attacks new or worse irritability acting on dangerous impulses other unusual changes in behavior or mood Do not drive, operate machinery, or do anything where you need to be completely alert after taking SPRAVATO. Do not take part in these activities until the next day following a restful sleep. Increased blood pressure. SPRAVATO can cause a temporary increase in your blood pressure that may last for about 4 hours after taking a dose. Your healthcare provider will check your blood pressure before taking SPRAVATO and for at least 2 hours after you take SPRAVATO. Tell your healthcare provider right away if you get chest pain, shortness of breath, sudden severe headache, change in vision, or seizures after taking SPRAVATO. Problems with thinking clearly. Tell your healthcare provider if you have problems thinking or remembering. Bladder problems. Tell your healthcare provider if you develop trouble urinating, such as a frequent or urgent need to urinate, pain when urinating, or urinating frequently at night. The most common side effects of SPRAVATO include: feeling disconnected from yourself, your thoughts, feelings and things around you dizziness nausea feeling sleepy spinning sensation decreased feeling of sensitivity (numbness) feeling anxious lack of energy increased blood pressure vomiting feeling drunk headache feeling very happy or excited If these common side effects occur, they usually happen right after taking SPRAVATO and go away the same day. 03/13/2024 MDD (recurrent major depressive disorder) in remission (ICD-10 - F33.40) Continue current treatment as prescribed by primary psychiatric care provider. 1. Depression - Patient rates depression as 0/10. - No current thoughts of suicide or self-harm. - Continue to monitor depressive symptoms - Encourage patient to report any changes in mood or new symptoms. 2. Anxiety - Patient rates anxiety as 0/10. - Continue to monitor anxiety symptoms during follow-up visits. - Encourage patient to report any changes in anxiety levels or new symptoms. 3. Sleep - Patient reports getting 6-7 hours of sleep per night. - Encourage patient to maintain good sleep hygiene. 4. Appetite - Patient reports a good appetite. - Encourage patient to maintain a balanced diet. 5. Medications - Patient reports no current medications. - Patient confirms medication status remains unchanged. 6. Physical Complaints - Patient reports no new physical complaints. - Encourage patient to report any new physical symptoms or concerns. - Consider referral to primary care provider if new physical complaints arise. 7. Psychosis - Patient denies any hallucinations, delusions, or paranoia. - Continue to monitor for any signs of psychosis during follow-up visits. - Encourage patient to report any new or concerning symptoms. 8. Safety - Patient denies thoughts of hurting others. - Continue to assess for safety concerns during follow-up visits. 04/10/2024 Major depressive disorder, recurrent severe without psychotic features (ICD-10 - F33.2) 04/10/2024 Major depressive disorder, recurrent severe without psychotic features (ICD-10 - F33.2) 05/01/2024 MDD (recurrent major depressive disorder) in remission (ICD-10 - F33.40) Continue current treatment as prescribed by primary psychiatric care provider. 1. Depression - Patient rates depression as 0/10. - No current symptoms of depression reported. - Plan: a. Continue monitoring for any changes in mood. b. continue therapy services. 2. Anxiety - Patient rates anxiety as 0/10. - No current symptoms of anxiety reported. - Plan: a. Continue monitoring for any changes in anxiety levels. b. continue therapy services. 3. Suicidal Ideation and Self-Harm - No thoughts of suicide or self-harm reported. - Plan: a. Continue to assess for any changes in risk factors. b. continue therapy services. 4. Homicidal Ideation - No thoughts of harming others reported. - Plan: a. Continue to assess for any changes in risk factors. b. continue therapy services. 5. Psychotic Symptoms - No hallucinations, delusions, or paranoia reported. - Patient responded Not yet when asked about psychotic symptoms. - Plan: a. Continue monitoring for any changes in psychotic symptoms. b. continue therapy services. 6. Sleep - Patient reports getting 6 out of 8 hours of sleep. - Plan: a. Encourage maintaining good sleep hygiene. b. Monitor for any changes in sleep patterns. 7. Appetite - Patient reports a good appetite. - Plan: a. Continue monitoring for any changes in appetite or weight. 8. Medication - Patient is not currently on any medication. - Patient confirmed No, no, no when asked about medication. - Plan: a. Continue to assess the need for medication based on symptom presentation and changes. 9. Therapy - Patient is attending therapy twice a week with therapist Dorothy Franz. - Plan: a. Encourage continued engagement in therapy. b. Monitor for any changes in mental health status. 10. Physical Complaints - No new physical complaints reported. - Plan: a. Continue to assess for any new physical symptoms during future visits. 05/15/2024 MDD (recurrent major depressive disorder) in remission (ICD-10 - F33.40) continue current treatment as prescribed by primary psychiatric care provider. 1. Depression - Patient to rated depression 0/10. - PHQ-9: 0 - Plan: a. Continue current treatment b. Monitor response and side effects. c. Encourage engagement in psychotherapy. 2. Anxiety - Patient rated anxiety 06/03. - ROSALEE-7: 0 - Plan: a. Continue current treatment 3. Suicidal Ideation and Self-Harm - patient denied SI - Plan: a. If present, evaluate risk and determine appropriate level of care. b. Develop a safety plan with the patient. c. Encourage engagement in psychotherapy, specifically dialectical behavior therapy (DBT) or other evidence-based approaches. 4. Homicidal Ideation - patient denied HI - Plan: a. If present, evaluate risk and determine appropriate level of care. b. Develop a safety plan with the patient. c. Encourage engagement in psychotherapy, specifically anger management or other evidence-based approaches. 5. Psychotic Symptoms -PT denied hallucinations, delusions, or paranoia. - Plan: a. If present, consider initiating or adjusting antipsychotic medication. b. Monitor response and side effects. c. Encourage engagement in psychotherapy, specifically cognitive-behav ioral therapy for psychosis (CBTp) or other evidence-based approaches. 6. Sleep - reported adequate sleep - Plan: a. Encourage good sleep hygiene practices. b. Consider sleep aids if necessary, based on the patient's sleep patterns and medical history. 7. Appetite - reported adequate appetite - Plan: a. Encourage a balanced diet and regular meals. b. Monitor weight and nutritional status. c. Consider referral to a disability services coordinator if needed. 8. Medication Changes - patient denied any new medications. - Plan: a. Review potential interactions with current psychiatric medications. b. Monitor response and side effects. 9. Physical Complaints - Assess for any new physical complaints. - Plan: a. Address any identified physical issues. b. Consider referral to appropriate specialists if needed. 10. marijuana use - patient reports marijuana use - plan: a. discussed negative effects marijuana has on mental illness and medication metabolism. 05/23/2024 Major depressive disorder, recurrent severe without psychotic features (ICD-10 - F33.2) 12/06/2023 Major depressive disorder, recurrent severe without psychotic features (ICD-10 - F33.2) Depression: - He reports a depression rating of 1 out of 10, indicating minimal depressive symptoms. - Continue his current treatment plan and monitor for any changes in mood or symptoms. 2. Anxiety: - He reports an anxiety rating of 3-4 out of 10, suggesting mild anxiety. - Continue his current treatment plan and monitor for any changes in anxiety levels. 3. Suicidal ideation and self-harm: - He denies any thoughts of suicide or self-harm. - Continue to assess for any changes in mood or thoughts related to self-harm or suicide during future visits. 4. Homicidal ideation: - He denies any thoughts of hurting others. - Continue to assess for any changes in mood or thoughts related to harming others during future visits. 5. Psychotic symptoms: - He denies experiencing hallucinations, paranoia, or delusions. - Continue to monitor for any emergence of psychotic symptoms during future visits. 6. Sleep: - He reports no issues with sleep. - Continue his current sleep hygiene practices and monitor for any changes in sleep patterns. 7. Appetite: - He reports no changes in appetite. - Continue to monitor his appetite and encourage a balanced diet. 8. Medications: - He reports no new medications. - Continue his current medication regimen and review for any potential adjustments during future visits. 12/13/2023 Major depressive disorder, recurrent severe without psychotic features (ICD-10 - F33.2) 1. Depression: - He reports a depression rating of 0/10 today. - No thoughts of suicide or self-harm. Plan: - Continue current antidepressant medication regimen. - Monitor for any changes in mood or depressive symptoms. 2. Anxiety: - He reports an anxiety rating of 4-5/10 today. - No thoughts of hurting others. Plan: - Continue current anxiolytic medication regimen. - Encourage him to engage in relaxation techniques and coping strategies. 3. Sleep: - He reports getting approximately 8 hours of sleep per night. Plan: - Encourage him to maintain good sleep hygiene. - Monitor for any changes in sleep patterns during follow-up appointments. 4. Appetite: - He reports no change in appetite, stating it is about the same. Plan: - Encourage him to maintain a balanced diet and regular meal schedule. 12/20/2023 Major depressive disorder, recurrent severe without psychotic features (ICD-10 - F33.2) 1. Depression - Patient reports depression rating of 0/10. - No reported thoughts of suicide or self-harm. - Plan: a. Continue current treatment and monitor progress. 2. Anxiety - Patient reports anxiety rating of 4-5/10. - Plan: a. Continue current treatment and monitor progress. b. Consider discussing coping strategies and relaxation techniques during future visits. 3. Sleep - Patient reports getting 6-8 hours of sleep per night. - Plan: a. Monitor sleep patterns and discuss sleep hygiene during future visits. 4. Appetite - Patient reports no significant changes in appetite. - Plan: a. Continue monitoring appetite and discuss any changes during future visits. 5. Medication - Patient reports no changes in medications. - Plan: a. Continue current medications and monitor effectiveness and side effects. b. Reassess medication regimen during future visits if needed. 6. Safety - Patient denies thoughts of hurting others. - Patient denies paranoia, hallucinations, or delusions. - Plan: a. Continue assessing for safety concerns during future visits. 12/20/2023 Major depressive disorder, recurrent severe without psychotic features (ICD-10 - F33.2) 12/27/2023 Major depressive disorder, recurrent severe without psychotic features (ICD-10 - F33.2) 1. Depression - Patient rates her depression as 0/10. - No reported suicidal ideation, self-harm thoughts, or thoughts of harming others. - No reported delusions, paranoia, or hallucinations. - Plan: a. Continue current treatment regimen. b. Monitor for mood/symptom changes. 2. Anxiety - Patient reported moderate anxiety. - Plan: a. Continue current treatment regimen. b. Monitor for anxiety level changes. c. Encourage reporting new/worsening symptoms. 3. Sleep - Patient reports adequate nightly sleep. - Plan: a. Continue current sleep hygiene practices. b. Encourage consistent sleep schedule. c. Monitor for sleep pattern changes. 4. Appetite - Patient reports no significant appetite changes. - Plan: a. Encourage balanced diet. b. Monitor for appetite/weight changes. 5. Medication Management - No recent medication changes reported. - Plan: a. Continue current medication regimen. b. Monitor for side effects/response changes. 01/05/2024 Major depressive disorder, recurrent severe without psychotic features (ICD-10 - F33.2) Major Depressive Disorder - Assessment: Patient reports significant improvement in mood and a near-zero score on PHQ-9. Currently on esketamine once a week. Patient reports being able to cope better with isolation without falling into depression. - Plan: Continue esketamine therapy, transitioning to every 10 days. Re-evaluate in one month. Post-Traumatic Stress Disorder - Assessment: Patient reports improved ability to handle triggers and maintain calmness. Patient demonstrates better control over irritability, as evidenced by handling political disagreements with neighbors calmly. - Plan: Continue monitoring progress and encourage the use of coping strategies. Irritability and Agitation while driving - Assessment: Patient reports using a Velcro strip on the steering wheel to help stay focused and reduce agitation. Patient notes the technique is kind of working. - Plan: Encourage continued use of this technique and monitor for any changes. Discontinuation of Alden ER - Assessment: Patient reports no longer taking lithium ER and is only on esketamine. - Plan: Acknowledge patient's decision and continue to monitor mood stability with esketamine therapy. Follow-up Appointments - Plan: Schedule a follow-up appointment in one month with Dr. Weldon and esketamine treatment. Instruct the patient to see Cierra kaur for scheduling. 01/05/2024 Generalized anxiety disorder (ICD-10 - F41.1) Major Depressive Disorder - Assessment: Patient reports significant improvement in mood and a near-zero score on PHQ-9. Currently on esketamine once a week. Patient reports being able to cope better with isolation without falling into depression. - Plan: Continue esketamine therapy, transitioning to every 10 days. Re-evaluate in one month. Post-Traumatic Stress Disorder - Assessment: Patient reports improved ability to handle triggers and maintain calmness. Patient demonstrates better control over irritability, as evidenced by handling political disagreements with neighbors calmly. - Plan: Continue monitoring progress and encourage the use of coping strategies. Irritability and Agitation while driving - Assessment: Patient reports using a Velcro strip on the steering wheel to help stay focused and reduce agitation. Patient notes the technique is kind of working. - Plan: Encourage continued use of this technique and monitor for any changes. Discontinuation of Alden ER - Assessment: Patient reports no longer taking lithium ER and is only on esketamine. - Plan: Acknowledge patient's decision and continue to monitor mood stability with esketamine therapy. Follow-up Appointments - Plan: Schedule a follow-up appointment in one month with Dr. Weldon and esketamine treatment. Instruct the patient to see Cierra kaur for scheduling. 09/01/2023 Major depressive disorder, recurrent severe without psychotic features (ICD-10 - F33.2) 09/28/2023 Major depressive disorder, recurrent severe without psychotic features (ICD-10 - F33.2) Anxiety and/or Depression - Assessment: Not specified in the transcript. - Plan: - Initiate weekly Esketamine sessions as discussed with the patient. - Note: Patient will be out of town for two weeks after the next session; inform Cierra for scheduling purposes. Nausea Management - Plan: - Patient is currently self-administerin g Dramamine before therapy sessions with no reported issues. Continue this regimen as needed. 11/08/2023 Major depressive disorder, recurrent severe without psychotic features (ICD-10 - F33.2) Depression - Assessment: The patient reports significant improvement in depressive symptoms, with shorter durations of depressive episodes. - Plan: Continue current treatment planwith spravato. Consider adding methylfolate supplementation, as the patient has found it helpful in managing mood fluctuations. Discuss appropriate dosage and monitor for any side effects. Anger and Emotional Dysregulation - Assessment: The patient experiences explosive anger episodes and difficulty calming down. They have found some relief with methylfolate supplementation. - Plan: Consider referral to a therapist for cognitive-behavio ral therapy or other appropriate interventions to address anger management and emotional regulation. Monitor the patient's response to methylfolate and consider adjusting the treatment plan as needed. Anxiety - Plan: Reevaluate the patient's anxiety levels after completing the initial eight treatment sessions. Adjust the treatment plan accordingly based on the patient's progress and response to therapy. Follow-up - Plan: Schedule a follow-up appointment after the eight treatment of spravato sessions to assess the patient's mood, depression, and anxiety levels. Discuss the effectiveness of the current treatment plan and make any necessary adjustments. 11/08/2023 Generalized anxiety disorder (ICD-10 - F41.1) Depression - Assessment: The patient reports significant improvement in depressive symptoms, with shorter durations of depressive episodes. - Plan: Continue current treatment planwith spravato. Consider adding methylfolate supplementation, as the patient has found it helpful in managing mood fluctuations. Discuss appropriate dosage and monitor for any side effects. Anger and Emotional Dysregulation - Assessment: The patient experiences explosive anger episodes and difficulty calming down. They have found some relief with methylfolate supplementation. - Plan: Consider referral to a therapist for cognitive-behavio ral therapy or other appropriate interventions to address anger management and emotional regulation. Monitor the patient's response to methylfolate and consider adjusting the treatment plan as needed. Anxiety - Plan: Reevaluate the patient's anxiety levels after completing the initial eight treatment sessions. Adjust the treatment plan accordingly based on the patient's progress and response to therapy. Follow-up - Plan: Schedule a follow-up appointment after the eight treatment of spravato sessions to assess the patient's mood, depression, and anxiety levels. Discuss the effectiveness of the current treatment plan and make any necessary adjustments. 11/15/2023 Major depressive disorder, recurrent severe without psychotic features (ICD-10 - F33.2) 11/15/2023 Major depressive disorder, recurrent severe without psychotic features (ICD-10 - F33.2) 11/22/2023 Major depressive disorder, recurrent severe without psychotic features (ICD-10 - F33.2) 11/29/2023 Major depressive disorder, recurrent severe without psychotic features (ICD-10 - F33.2) 1. Depression: - He rates his depression as 1/10, which is an improvement from the previous visit. - Plan: Continue current treatment as he is satisfied with the progress. Monitor for any changes in symptoms or new stressors. 2. Anxiety: - He rates his anxiety as 4/10. - Plan: Continue current treatment and monitor for any changes in symptoms or new stressors. Consider discussing coping strategies or therapy options if anxiety does not improve or worsens. 3. Sleep: - He reports getting 6-8 hours of sleep per night without nightmares. - Plan: Encourage maintaining good sleep hygiene and monitor for any changes in sleep patterns. 4. Appetite: - He reports a good appetite. - Plan: Continue to monitor appetite and encourage a balanced diet. 5. Suicidality and Homicidality: - He denies any thoughts of hurting himself or others. - Plan: Continue to assess for suicidality and homicidality at each visit and provide appropriate resources if needed. 6. Medication refills: - He reports no need for medication refills at this time. - Plan: Continue to monitor medication adherence and address any concerns or side effects at future visits. Overall, the patient is showing improvement in his depression and is satisfied with his current treatment. Continue to monitor his progress and address any new concerns or symptoms as they arise. 01/05/2024 Post-traumatic stress disorder, chronic (ICD-10 - F43.12) Major Depressive Disorder - Assessment: Patient reports significant improvement in mood and a near-zero score on PHQ-9. Currently on esketamine once a week. Patient reports being able to cope better with isolation without falling into depression. - Plan: Continue esketamine therapy, transitioning to every 10 days. Re-evaluate in one month. Post-Traumatic Stress Disorder - Assessment: Patient reports improved ability to handle triggers and maintain calmness. Patient demonstrates better control over irritability, as evidenced by handling political disagreements with neighbors calmly. - Plan: Continue monitoring progress and encourage the use of coping strategies. Irritability and Agitation while driving - Assessment: Patient reports using a Velcro strip on the steering wheel to help stay focused and reduce agitation. Patient notes the technique is kind of working. - Plan: Encourage continued use of this technique and monitor for any changes. Discontinuation of Alden ER - Assessment: Patient reports no longer taking lithium ER and is only on esketamine. - Plan: Acknowledge patient's decision and continue to monitor mood stability with esketamine therapy. Follow-up Appointments - Plan: Schedule a follow-up appointment in one month with Dr. Weldon and esketamine treatment. Instruct the patient to see [facility] for scheduling. 05/23/2024 Generalized anxiety disorder (ICD-10 - F41.1) 07/24/2024 Encounter for screening for cardiovascular disorders (ICD-10 - Z13.6) 07/03/2024 Encounter for screening for cardiovascular disorders (ICD-10 - Z13.6) 02/09/2024 Generalized anxiety disorder (ICD-10 - F41.1) Anxiety - Assessment: Patient reports significant improvement in anxiety levels, stating Yeah, my anxiety is low. - Plan: - Continue current treatment plan. - Encourage patient to practice deep breathing exercises and guided meditation to manage anxiety in triggering situations. Depression - Assessment: Patient denies any current depressive symptoms, stating I don't have no depression or anything like that. - Plan: - Continue monitoring patient's mood and mental health status. Anger Management - Assessment: Patient recognizes the need to improve their reaction to certain situations and is working on managing their anger. Patient reports getting frustrated over minor issues but is learning to control reactions. - Plan: - Encourage patient to continue practicing coping strategies, such as deep breathing exercises and guided meditation, to manage anger in triggering situations. Sleep Disturbance - Assessment: Patient reports poor sleep quality and lack of deep sleep, stating And my sleep is no good. - Plan: - Encourage patient to practice good sleep hygiene, guided meditation, and relaxation techniques to improve sleep quality. - Discussed potential risks and benefits of using sleeping pills, including rebound insomnia, and patient agreed to continue with non-pharmacologic al interventions. Spravato Treatment - Assessment: Patient is currently receiving Spravato once a week and reports improvement in their mental health. - Plan: - Transition patient to Spravato every 10 days until the end february, followed by a reduction to every 2 weeks. - Patient agrees with the transition plan. - Monitor patient's response to the adjusted treatment schedule and make further adjustments as needed. Follow-up - Plan: - Schedule follow-up appointments for Spravato treatment as discussed. - Continue monitoring patient's mental health status, sleep quality, and response to treatment during subsequent visits. 07/10/2024 Encounter for screening for depression (ICD-10 - Z13.31) 02/09/2024 Post-traumatic stress disorder, chronic (ICD-10 - F43.12) Anxiety - Assessment: Patient reports significant improvement in anxiety levels, stating Yeah, my anxiety is low. - Plan: - Continue current treatment plan. - Encourage patient to practice deep breathing exercises and guided meditation to manage anxiety in triggering situations. Depression - Assessment: Patient denies any current depressive symptoms, stating I don't have no depression or anything like that. - Plan: - Continue monitoring patient's mood and mental health status. Anger Management - Assessment: Patient recognizes the need to improve their reaction to certain situations and is working on managing their anger. Patient reports getting frustrated over minor issues but is learning to control reactions. - Plan: - Encourage patient to continue practicing coping strategies, such as deep breathing exercises and guided meditation, to manage anger in triggering situations. Sleep Disturbance - Assessment: Patient reports poor sleep quality and lack of deep sleep, stating And my sleep is no good. - Plan: - Encourage patient to practice good sleep hygiene, guided meditation, and relaxation techniques to improve sleep quality. - Discussed potential risks and benefits of using sleeping pills, including rebound insomnia, and patient agreed to continue with non-pharmacologic al interventions. Spravato Treatment - Assessment: Patient is currently receiving Spravato once a week and reports improvement in their mental health. - Plan: - Transition patient to Spravato every 10 days until the end february, followed by a reduction to every 2 weeks. - Patient agrees with the transition plan. - Monitor patient's response to the adjusted treatment schedule and make further adjustments as needed. Follow-up - Plan: - Schedule follow-up appointments for Spravato treatment as discussed. - Continue monitoring patient's mental health status, sleep quality, and response to treatment during subsequent visits. 07/03/2024 Major depressive disorder, recurrent severe without psychotic features (ICD-10 - F33.2) 07/10/2024 Encounter for screening for cardiovascular disorders (ICD-10 - Z13.6) 05/23/2024 Post-traumatic stress disorder, chronic (ICD-10 - F43.12) 07/03/2024 Generalized anxiety disorder (ICD-10 - F41.1) 07/03/2024 Post-traumatic stress disorder, chronic (ICD-10 - F43.12) 04/10/2024 Other Cont esketamine treatments. Cont current medications per Dr Weldon 05/01/2024 Other continue current treatment. continue therapy. 1. Depression - Patient rates depression as 0/10. - No current symptoms of depression reported. - Plan: a. Continue monitoring for any changes in mood. b. continue therapy services. 2. Anxiety - Patient rates anxiety as 0/10. - No current symptoms of anxiety reported. - Plan: a. Continue monitoring for any changes in anxiety levels. b. continue therapy services. 3. Suicidal Ideation and Self-Harm - No thoughts of suicide or self-harm reported. - Plan: a. Continue to assess for any changes in risk factors. b. continue therapy services. 4. Homicidal Ideation - No thoughts of harming others reported. - Plan: a. Continue to assess for any changes in risk factors. b. continue therapy services. 5. Psychotic Symptoms - No hallucinations, delusions, or paranoia reported. - Patient responded Not yet when asked about psychotic symptoms. - Plan: a. Continue monitoring for any changes in psychotic symptoms. b. continue therapy services. 6. Sleep - Patient reports getting 6 out of 8 hours of sleep. - Plan: a. Encourage maintaining good sleep hygiene. b. Monitor for any changes in sleep patterns. 7. Appetite - Patient reports a good appetite. - Plan: a. Continue monitoring for any changes in appetite or weight. 8. Medication - Patient is not currently on any medication. - Patient confirmed No, no, no when asked about medication. - Plan: a. Continue to assess the need for medication based on symptom presentation and changes. 9. Therapy - Patient is attending therapy twice a week with therapist Dorothy Franz. - Plan: a. Encourage continued engagement in therapy. b. Monitor for any changes in mental health status. 10. Physical Complaints - No new physical complaints reported. - Plan: a. Continue to assess for any new physical symptoms during future visits. 05/23/2024 Other Depression - Assessment: Patient reports no current depressive symptoms and a back depression rating scale of zero. - Plan: - Continue with the current treatment plan. - Encourage continued use of the [employer] zoran for meditation. Irritability and Road Rage - Assessment: Patient reports significant improvement in irritability while driving and a decrease in road rage incidents. - Plan: - Encourage continued use of commuting meditation to manage irritability. PTSD - Assessment: Patient reports good progress in managing PTSD symptoms, with occasional spurts of anger but no nightmares or flashbacks. - Plan: - Continue working with Dorothy in counseling to address daily triggers and improve coping strategies. - Monitor the effects [facility]. Medication Management - Assessment: Patient is not on any oral antidepressant. FDA recently approved Spravato as monotherapy, allowing prescription without concurrent antidepressant use. - Plan: - Change the frequency of Spravato treatment to every two weeks. - Send the Spravato prescription to [facility]. 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 Patient is educating his daughter about PTSD and meditation in relation to her career aspirations. - Plan: - Support the patient's efforts to educate his daughter. Neighbor Incident - Assessment: Patient shared a past traumatic experience involving the discovery of a neighbor. - Plan: - Continue to address this incident and any related emotional impact in counseling sessions with Dorothy. Follow-up - Plan: - Continue monitoring patient's progress with Spravato treatment and meditation practices. - Assess the effectiveness of the current treatment plan in managing PTSD symptoms and overall mental health. 06/19/2024 Other 1. Depression - Patient rates depression as 0/10. - Acknowledges situational issues may contribute to anxiety and depression. - Plan: a. Continue monitoring mood and depressive symptoms at follow-ups. 2. Anxiety - Patient actively managing anxiety through meditation and self-awareness. - Exploring nervous system's contribution to anxiety. - Plan: a. Encourage continuation of meditation and self-help techniques. b. Consider referral to therapist or counselor if needed. 3. Sleep - Patient reports decent sleep quality. - Plan: a. Continue monitoring sleep patterns at follow-ups. 4. Appetite - Patient reports good appetite. - Plan: a. Continue monitoring appetite at follow-ups. 5. Medications - Patient not currently on any medications. - Plan: a. Reassess need for medications at follow-ups based on symptoms and progress. 6. Physical Complaints - Patient reports no new physical complaints. - Plan: a. Continue monitoring for new or worsening physical symptoms at follow-ups. 07/03/2024 Other Major Depressive Disorder - Assessment: Patient reports significant improvement in depressive symptoms with esketamine treatment administered every 2 weeks. PHQ-9 score is 0, indicating remission of depressive symptoms. Patient denies current sadness, depressed mood, or pessimistic thoughts. He demonstrates increased interest in activities and social engagement, including regular visits to the park and initiating conversations with strangers. The patient attributes some of his progress to meditation and breathing techniques for managing occasional irritability. - Plan: - Continue esketamine (Spravato) 84 mg, extending interval to every 2-4 weeks as per patient's preference due to personal circumstances - Encourage continued use of meditation and breathing techniques for symptom management - Follow up in 3 months to reassess treatment efficacy and symptom status Post-Traumatic Stress Disorder (PTSD) - Assessment: Patient reports ongoing improvement in PTSD symptoms. He continues to engage in Eye Movement Desensitization and Reprocessing (EMDR) therapy with Dorothy, which he finds beneficial for working through residual issues. The combination of esketamine treatment and EMDR therapy appears to be effective in managing PTSD symptoms. Patient plans to see his therapist, Dorothy, the day after this appointment. - Plan: - Continue current EMDR therapy sessions - Reassess PTSD symptoms at next follow-up appointment Social Isolation - Assessment: Patient demonstrates improvement in social engagement, reporting increased outdoor activities and interactions with strangers. He now visits the park three times a week and has had positive experiences initiating conversations, including a serendipitous encounter with someone connected to his family. Socialization is noted to have a positive impact on his overall mental health. - Plan: - Encourage continued social engagement and outdoor activities - Reinforce the positive impact of socialization on overall mental health 07/10/2024 Other Anxiety and Irritability Assessment: Reports experiencing anxiety and irritability, which he describes as really there and kind of hiding itself. He recounts a recent incident where he managed to stay calm during a frustrating paperwork situation, but acknowledges that in a different setting, he might have blown up. This suggests he is struggling with emotional regulation, particularly in public or unfamiliar environments. His social isolation, as he reports not living anywhere specific and not knowing anyone, may be exacerbating these symptoms. Plan: - Explore coping strategies for managing anxiety and irritability in public settings - Discuss potential benefits of social support and community engagement - Consider referral for cognitive-behavi oral therapy to address emotional regulation Depression pt denied depressive symptoms. The patient's social isolation may be contributing factor to his emotional dysregulation. Plan: - Monitor depressive symptoms and their impact on daily functioning - Discuss potential psychosocial interventions to address social isolation - Provide education on the importance of maintaining a regular sleep schedule The note is transcribed using speech recognition software. It is a reflection of a visit with the patient. It might have some inaccuracy, including medication names and transcribing errors, though efforts have been made to correct them. 07/24/2024 Other Major Depressive Disorder Assessment: Patient presents for esketamine administration as part of ongoing treatment for major depressive disorder. He denies current symptoms of anxiety or depression, reporting that sleep and appetite are fine. However, the patient notes increased irritability, which he is attempting to manage using coping skills recommended by his therapist. The patient continues to use marijuana and has expressed understanding of its risks and benefits in relation to mental illness. Plan: - Administer esketamine 84 mg as scheduled - Continue current medication regimen (no side effects reported) - Maintain ongoing therapy sessions with Dorothy Franz on Tuesdays and - Follow up with Dr. Weldon (primary psychiatric care provider) on 08/12/24 - Patient expressed understanding of risks and benefits of esketamine and agreed not to drive after administration - No intervention for marijuana use at this time (patient declined) The note is transcribed using speech recognition software. It is a reflection of a visit with the patient. It might have some inaccuracy, including medication names and transcribing errors, though efforts have been made to correct them. Plan Of Treatment Next Appt Details Provider Name:Jose Daniel Weldon , 10/03/2024 09:45:00 AM, [address], [facility] [address], [place], [address], Insurance Providers Payer Name Payer Address Payer Phone Subscriber Number Group Number Insured Name Patient Relationship to Insured Coverage Start Date Coverage End Date [employer] Medicare Replacement/ Advantage - Ppo [address] [address] [place] [address] [id number] NAARadha Kristen GIOVANNI Self - patient is the insured Medications Administered Medication Instructions Date of Administration Dosage Notes Spravato (84 MG Dose) 09/28/2023 84 mg Spravato (84 MG Dose) 11/08/2023 84 mg Spravato (84 MG Dose) 11/15/2023 84 mg Spravato (84 MG Dose) 11/22/2023 84 mg Spravato (84 MG Dose) 11/29/2023 84 mg Spravato (84 MG Dose) 12/06/2023 84 mg Spravato (84 MG Dose) 12/13/2023 84 mg Spravato (84 MG Dose) 12/20/2023 84 mg Spravato (84 MG Dose) 12/27/2023 84 mg Spravato (84 MG Dose) 01/10/2024 84 mg Spravato (84 MG Dose) 02/20/2024 84 mg Spravato (84 MG Dose) 02/28/2024 84 mg Spravato (84 MG Dose) 03/13/2024 84 mg Spravato (84 MG Dose) 04/10/2024 84 mg Spravato (84 MG Dose) 05/01/2024 84 mg Spravato (84 MG Dose) 05/15/2024 84 mg Spravato (84 MG Dose) 06/19/2024 84 mg Spravato (84 MG Dose) 07/10/2024 84 mg Spravato (84 MG Dose) 07/24/2024 84 mg Medical (General) History Medical History History ICD Code Severe recurrent major depression withou t psychotic features Chronic post-traumatic stress disorder Generalized anxiety disorder Problems: Chronic pain syndrome Surgical History Surgery Date(Month/Year) Removal of gallbladder (30152) Removal of gallbladder (14292) 0 Lumbar spinal fusion ([id number]) 03/26/20 19
--- OUTSIDE RECORDS SUMMARY | 2024-08-17 10:55 | XMS_ITS | Clinical Summary ---
Author Organization [facility] Address [address] [place] [address] Phone Care Team Providers Care Analysis Consultant Name Role Phone Soniya Beauchamp MD Primary Care Provider [phone] Allergies No known active allergies Medications No known medications Social History Tobacco Use Types Packs/Day Years Used Date Smoking Tobacco: Never Tobacco Cessation:Counseling Given: Not Answered Alcohol Use Standard Drinks/Week Comments Never 0 (1 standard drink = 0.6 oz pur e alcohol) Feeling Safe Answer Date Recorded Are you in a relationship wi th someone who hurts you emotionally and/or physically? No 03/02/2023 Sex and Gender Information Value Date Recorded Sex Assigned at Not on file Legal Sex Male 11:34 PM [employer] Gender Identity Not on file Sexual Orientation Not on file Last Filed Vital Signs Vital Sign Reading Time Taken Comments Blood Pressure 110/72 03/02/2023 7:48 PM [employer] Pulse 60 03/02/2023 7:48 PM [employer] Temperature 36.7 C (98.1 F) 03/02/2023 7:48 PM [employer] Respiratory Rate 18 03/02/2023 7:48 PM [employer] Oxygen Saturation 100% 03/02/2023 7:48 PM [employer] Inhaled Oxygen Concentration - - Weight 79.4 kg (175 lb) 03/02/2023 2:02 PM [employer] Height 175.3 cm (5' 9 ) 03/02/2023 2:02 PM [employer] Body Mass Index 25.84 03/02/2023 2:02 PM [employer] Plan of Treatment Health Maintenance Due Date Last Done Comments DTAP/TDAP/TD VACCINES (1 - Tdap) 1993 HEPATITIS B VACCINES (1 of 3 - 19+ 3-dose series) 1993 COLORECTAL SCREENING 2019 Colorectal Cancer Screening 2019 FIT-DNA Q 3 years 2019 FIT/FOBT Q 1 year 2019 Flex Sig/CT Colonography Q 5 years 2019 INFLUENZA VACCINE (#1) 2023 COVID-19 Vaccine ( season) 2023, 07/21/2020 ZOSTER VACCINE (1 of 2) 02/11/2024 Insurance [facility] [id number] Care Teams Analysis Consultant Relationship Specialty Start Date End Date Soniya Beauchamp MD [address] [place] [address] PCP - General Internal Medicine 03/02/23
--- OUTSIDE RECORDS SUMMARY | 2024-08-17 10:55 | XMS_ITS | Data Portability ---
Author Organization [facility] Address [address] [place] [address] Assessment No assessment recorded. Plan of Treatment Reminders Order Date Submit Date Provider Last Modified By Organization Details Last Modified Time Details Appointments None recorded. Lab None recorded. Referral None recorded. Procedures None recorded. Surgeries None recorded. Imaging None recorded. Medication Orders Chantix Starting Month Box 0.5 mg (11)-1 mg (42) tablets in dose pack 2015 016 [id number], [address] [place], [address], 6 04:31:28 nicotine 21 mg/24 hr daily transdermal patch 2015 016 [id number], [address] [place], [address], 6 04:31:42 Aldara 5 % topical cream packet 2015 016 [id number], [address] [place], [address], 6 04:31:36 Patient TargetsNo targets recorded. Patient Instructions Encounter Date Encounter Id Patient Instructions Last Modified By Organization Details Last Modified Time 03/08/2016 [id number] genital warts: care instructions [email or web address] Not available 03/14/2016 10:17:35 Reason for Referral None Reported. Medical Equipment None Reported. Allergies No known drug allergies Medications Name Sig Start Date Stop Date Status Note LastModified by Organization Details LastModified Time silver sulfadiazine 1 % topical cream active Not Available Not Available Not Available ibuprofen 800 mg tablet active Not Available Not Available Not Available hydrocodone 5 mg-acetamino phen 325 mg tablet active Not Available Not Available Not Available prednisone 20 mg tablet active Not Available Not Available Not Available sertraline 100 mg tablet active Not Available Not Available Not Available olanzapine 10 mg tablet active Not Available Not Available Not Available omeprazole 40 mg capsule,khalif yed release active Not Available Not Available Not Available oxycodone-ac etaminophen 5 mg-325 mg tablet active Not Available Not Available Not Available trazodone 100 mg tablet active Not Available Not Available Not Available imiquimod 5 % topical cream packet APPLY TO THE AFFECTED AREA(S) BY TOPICAL ROUTE 5 TIMES PER WEEK active Not Available Not Available No t Available cephalexin 500 mg capsule active Not Available Not Available Not Available simvastatin 20 mg tablet active Not Available Not Available Not Available divalproex ER 500 mg tablet,exten ded release 24 hr active Not Available Not Available Not Available nicotine 21 mg/24 hr daily transdermal patch Apply 1 patch every day by transdermal route for 90 days. 2015 active Not Available Not Available Not Avai lable methylphenid ate ER 36 mg tablet,exten ded release 24 hr active Not Available Not Available Not Available amoxicillin 500 mg-potassium clavulanate 125 mg tablet active Not Available Not Available Not Available Chantix Starting Month Box 0.5 mg (11)-1 mg (42) tablets in dose pack Take 1 tablet every day by oral route as directed for 30 days. active Not Available Not Available No t Available Vitals Date Recorded Body weight Oxygen saturation Oxygen saturation in Arterial blood by Pulse oximetry Heart rate Respiratory rate Body temperature Body height Body mass index (BMI) Systolic blood pressure Diastolic blood pressure Provider Name and Address Organization Details Last Updated DateTime 6 974355. 66 g 98 % 98 % 75 /min 18 /min 98.9 [degF] 175.26 cm 34.6 kg/m2 128 mm[Hg] 82 mm[Hg] Tahir Hicks [place] - [facility] 6 18:26:44 Date Recorded Pain severity - 0-10 verbal numeric rating [Score] - Reported Provider Name and Address Organization Details Last Updated DateTime 03/08/2016 0 Not Available [employer] 8 07:34:30 Social History None recorded. Functional Status None recorded. Mental Status None recorded. Family History Nothing Reported. Medical History No medical history recorded. Past Encounters Encounter ID Performer Location Encounter Start Date Encounter Closed Date Diagnosis/Indication Diagnosis SNOMED-CT Code Diagnosis ICD10 Code Diagnosis Note [id number] Aaron Baumann MD [address] [address] 03/08/2016 17:19:42 03/09/2016 12:20:18 Genital warts 632953160 A63.0 refer and use aldara once name of derm given Tobacco user [id number] Z 72.0 meds and follow up... Health Concerns Section Related Observation LastModified by Organization Detai ls LastModified Time None Recorded Concern Status LastModified by Organization Details LastModified Time None Recorded Advance Directives Directive None Recorded Payers Encounter Date Sequence Insurance Name Policy Number Policy Kaplan Covered Member ID Kaplan Member ID Guarantor Name 03/08/2016 1 [place] Jose Roberto Barrett [id number] Jose Roberto Barrett Notes Date Note Type Note Provider Name and Address Organization Details Recorded Time 03/08/2016 text/html concern for lesions on penis for 1 year no pain/bleeding/d ischarge.. Aaron Baumann MD Attn: Accounting,[address] [facility], [place], [address], [facility] 03/13/2016 11:19:52
--- OUTSIDE RECORDS SUMMARY | 2024-08-17 10:55 | XMS_ITS | Clinical Summary ---
Author Organization [facility] Address [address] [place] [id number] Care Team Providers Care Meter Mechanic Name Role Phone Soniya Beauchamp MD Primary Care Provider [phone] Allergies No known active allergies Medications No known medications Active Problems Problem Noted Date Diagnosed Date SI (sacroiliac) joint inflammation 10/26/2017 Lumbar radiculopathy 08/09/2017 Family History Medical History Relation Comments Hypertension Maternal Grandmother Relation Status Comments Brother Alive Father Maternal Grandmother Mother Alive Social History Tobacco Use Types Packs/Day Years Used Date Smoking Tobacco: Former Cigarettes 0.3 3 Smokeless Tobacco: Former Chew Tobacco Cessation:Counseling Given: No Comments:Patient verbalized understanding of smoking cessation. Has a script for Chantix, had to wait for second script, and began smoking again. Is not nicotine gum Alcohol Use Standard Drinks/Week Comments Not Currently 0 (1 standard drink = 0.6 oz pur e alcohol) SOCIAL Sex and Gender Information Value Date Recorded Sex Assigned at Not on file Legal Sex Male 4:06 PM CDT Gender Identity Not on file Sexual Orientation Not on file Occupation Industry Job Start Date Job End Date Not on file Not on file Not on file Not on file Last Filed Vital Signs Vital Sign Reading Time Taken Comments Blood Pressure 138/87 05/16/2023 1:55 PM FEEDER CATCHER Pulse 65 05/16/2023 1:55 PM FEEDER CATCHER Temperature 36.9 C (98.4 F) 05/16/2023 1:55 PM FEEDER CATCHER Respiratory Rate 18 02/13/2023 10:11 AM CDT Oxygen Saturation 98% 05/16/2023 1:55 PM FEEDER CATCHER Inhaled Oxygen Concentration - - Weight 78.5 kg (173 lb) 05/16/2023 1:55 PM FEEDER CATCHER Height 175.3 cm (5' 9 ) 05/16/2023 1:55 PM FEEDER CATCHER Body Mass Index 25.55 05/16/2023 1:55 PM FEEDER CATCHER Plan of Treatment Health Maintenance Due Date Last Done Comments Annual Physical 1977 Hepatitis C 02/11/1992 DTaP, Tdap and Td Vaccines ( 1 - Tdap) 1993 Hepatitis B Vaccines (1 of 3 - 19+ 3-dose series) 1993 COVID-19 Vaccine (4 - 2023-2 5 season) 2023 04/20/2021, 08/13/2020, 07/21/2020 Pneumococcal Vaccine: 50+ Years (1 of 1 - PCV) 02/11/2024 Zoster Vaccines (1 of 2) 02/11/2024 PHQ-2 (Physician Chevak) 04/24/2024 Colorectal Cancer Screening Colonoscopy (10 Years) 07/07/2031 07/06/2021, 07/06/2021, 09/25/2018 Meningococcal B Vaccine Aged Out No l onger eligible based on patient's age to complete this topic Meningococcal Vaccine Aged Out No jese celina eligible based on patient's age to complete this topic RSV Immunizations Under 20 Months Aged Out No longer eligible b ased on patient's age to complete this topic Procedures Procedure Name Priority Date/Time Associated Diagnosis Comments COLONOSCOPY Routine 07/06/2021 2:39 PM CDT from Last 3 Months or Most Recently Relevant to Health Maintenance Results * Colonoscopy (07/06/2021 2:39 PM CDT) Narrative Procedure Note Drake Smith MD - 07/06/2021 2:39 PM CDT DRAKE SMITH MD, FACG, FACP COLONOSCOPY and EGD 07/06/2021 EGD INDICATION: Epigastric pain, nausea, vomiting, early satiety. POST-OP: Normal. SEDATION: Per Anesthesia With the patient in the left lateral decubitus position, the [id number] endoscope was used to easily intubate the esophagus and advancedto the third duodenum. Careful inspection of the mucosa was made uponinsertion and withdrawal of the endoscope with retroflexion in thestomach. Findings: Esophagus: SC Jx @ 45 cm. The esophagus is normal. No esophagitis,stricture, mass or Carmichael's. Stomach: Fundus, body and antrum normal. No ulceration, erosion,inflammation, AVM or malignancy. Duodenum: Normal in the bulb, second and third duodenum. COLONOSCOPY INDICATION: Abnormal imaging-digestive, tenesmus. POST-OP: Normal. PREP: Good. With the patient in the left lateral decubitus position, the [id number] colonoscope was introduced into the rectum and advanced easilyto the Terminal Ileum. Careful inspection of the mucosa was made uponinsertion and withdrawal of the endoscope. FINDINGS: Terminal ileum: distal 5 cm normal. Cecum, Ascending colon, Transversecolon, Descending colon, Sigmoid colon and Rectum including retroflexionnormal. No masses, polyps, AVMs, colitis or diverticulosis seen. No complications, blood loss or implants. 06-18-2021 A1C 5.4, TSH 1.3, FT4 1.1, ESR 2.0, CRP 2.1, TTG IgA < 1.0 ASSESSMENT AND PLAN: A. Unremarkable colonoscopy: screening colonoscopy in 10 years. B. Abnormal imaging-digestive: - Abnormal CT with AC wall thickening - Likely under-filling; normal on colonoscopy C. Epigastric pain, nausea, vomiting, early satiety: - Likely functional vs motility - Labs negative - Will discuss with patient in office; consider Elavil Thank you for allowing me to care for your patient. He will follow-up withme SYLVESTER. Drake Smith M.D. Cc: Dr. Beauchamp Drake Smith MD GI PROCEDURE ORDERABLES Fin al Result from Last 3 Months or Most Recently Relevant to Health Maintenance Insurance Care Teams Meter Mechanic Relationship Specialty Start Date End Date Soniya Beauchamp MD [address] [place] [address] PCP - General INTERNAL MEDICINE 08/09/17
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
--- OUTSIDE RECORDS SUMMARY | 2024-08-17 10:55 | XMS_ITS | Encounter Summary ---
Author Organization [facility] Healthcare Address [address] [place] [id number] Care Team Providers Care Window Treatment Installer Name Role Phone Soniya Beauchamp MD Primary Care Provider Reason for Referral * MRI/CAT/PET Scan (Routine) - Closed Specialty Diagnoses / Procedures Referred By Contac t Referred To Contact Diagnoses Tear of medial meniscus of left knee, current, unspecified tear type, initial encounter Procedures MRI Knee Left WO Contrast Demetri Bain DO [address] [place] [address] [address] [place] [address] Phone: tel: fax: [facility] [address] [place] [address] Phone: tel: fax: Referral ID Status Reason Start Date Expiration Date Visits Re quested Visits Authorized [id number] Closed 08/14/2024 09/13/2025 1 1 Encounter Details Date Type Department Care Team (Late st Contact Info) Description 08/14/2024 Orders Only [facility] Hand Surgery [address] [facility] [address] [place] [address] Demetri Bain DO [address] [place] [address] [address] [place] [address] Tear of medial meniscus of left knee, current, unspecified tear type, initial encounter (Primary Dx) Social History Tobacco Use Types Packs/Day Years [...] on file Legal Sex Male 11:47 AM ADVISOR CONSULTANT Gender Identity Not on file Sexual Orientation Not on file Occupation Industry Job Start Date Job End Date Retired Not on file Not on file Not on file documented as of this encounter Plan of Treatment Scheduled Orders Name Type Priority Associated Diagnoses Orde r Schedule MRI Knee Left WO Contrast Imaging Schedule Routine, Read Routine (OP Routine) Tear of medial meniscus of left knee, current, unspecified tear type, initial encounter Expected: 08/14/2024 (Approximate), Expires: 08/14/2025 documented as of this encounter Goals Goal Patient Goal Type Associated Problems [...] on stairs Contact your local community or [facility] for information on exercise, fall prevention programs, or options for improving home safety. documented as of this encounter Visit Diagnoses Diagnosis Tear of medial meniscus of left knee, current, unspecified tear type, initial encounter- Primary documented in this encounter Care Teams Window Treatment Installer Relationship Specialty Start Date End Date Soniya Beauchamp MD [address] [place] [address] PCP - General Internal Medicine 05/05/20 documented as of this encounter
--- OUTSIDE RECORDS SUMMARY | 2024-08-17 10:55 | XMS_ITS | Referral Summary ---
Author Organization [facility] Address [address] [place] [id number] Care Team Providers Care Shade Bander Name Role Phone Soniya Beauchamp MD Primary Care Provider Encounters Date Type Department Care Team Description 08/14/[address] [facility] Medical Group Hand Surgery [address] [place] [address] [address] [place] [phone] Demetri Bain DO Tear of medial meniscus of left knee, current, unspecified tear type, initial encounter (Primary Dx) 08/13/2024 Telephone [facility] Medicine [address] [place] [phone] Demetri Bain DO MRI 08/08/2024 Documentation [facility] [address] [place] [phone] Ada Beth MA 08/08/2024 Telephone [facility] [address] [place] [address] [address] [place] [address] Demetri Bain DO Advice Only 08/08/2024 7:54 AM CDT - 08/08/2024 11:59 PM CDT Hospital Encounter [facility] MOB 1 DIAG IM[address] [place] [phone] Left knee pain, unspecified chronicity Discharge Disposition: Discharge to home or self care 08/08/2024 8:15 AM CDT Office Visit [facility] [address] [place] [phone] Demetri Bain DO Tear of medial meniscus of left knee, current, unspecified tear type, initial encounter (Primary Dx); Left knee pain, unspecified chronicity from Last 3 Months Allergies No known active allergies Medications lithium [...] (12/02/2019): Added automatically from request for surgery [id number] Cervicalgia 09/17/2019 Assessment & Plan (11/13/2019 11:19 [...] (01/15/2019): Added automatically from request for surgery [id number] Spinal instabilities, lumbar region 01/15/2019 Overview (01/15/2019): Added automatically from request for surgery [id number] Assessment & Plan (09/17/2019 10:37 AM CDT): Assessment Status post L4-5 anterior interbody fusion doing quite well Plan Acceptance. I talked about do's and don'ts he is to call back as needed for his low back his dominant problem today was his cervical spine Assessment & Plan (05/08/2019 11:46 AM HOGSHEAD COOPER): Assessment: Healing anterior lumbar interbody fusion L4-5 [...] (01/15/2019): Added automatically from request for surgery [id number] Spinal instability of lumbar region 10/16/2018 Assessment & Plan (07/18/2019 10:19 AM CDT): Assessment Healing fusion L4-5 Plan Observation. He improved a little bit on his recent Medrol Dosepak. I sent him a 2nd one to have in case the symptoms flare up again. Otherwise I will see him in 2 months for an x-ray Assessment & Plan (04/04/2019 12:05 PM HOGSHEAD COOPER): Status post anterior lumbar interbody fusion L4-5 [...] (03/22/2018): Added automatically from request for surgery [id number] Assessment & Plan (10/04/2018 10:30 AM CDT): [...] (11/25/2020): Added automatically from request for surgery [id number] Fatigue 10/19/2015 09/14/2022 Knee pain 10/19/2015 09/14/2022 Reduced libido 10/19/2015 09/14/2022 Shoulder joint pain 10/19/2015 09/14/2022 HNP (herniated nucleus pulposus), lumbar 016 Assessment & Plan (05/17/2018 11:33 AM HOGSHEAD COOPER): Assessment Status post right L4-5 lumbar microdiskectomy doing quite well Plan Observation I talked about do's and don'ts he is to return in a month and if doing well released there is a question he can go to physical therapy Assessment & Plan (03/20/2018 9:30 AM HOGSHEAD COOPER): Assessment Extruded disc fragment L4-5 right with [...] procedure Assessment & Plan (03/08/2018 11:06 AM HOGSHEAD COOPER): Assessment Extruded disc fragment L4-5 with central [...] nerve 04/02/2015 09/14/2022 Posttraumatic stress disorder 04/02/2015 Immunizations Immunization Administration Dates Next Due Pfizer SARS-CoV-2 Monovalent Vaccination (12+ Yrs) PURPLE 08/13/2020,07/21/2020 Social History Tobacco Use Types Packs/Day Years [...] on file Legal Sex Male 11:47 AM HOGSHEAD COOPER Gender Identity Not on file Sexual Orientation Not on file Occupation Industry Job Start Date Job End Date Retired Not on file Not on file Not on file Last Filed Vital Signs Vital Sign Reading Time Taken Comments Blood Pressure 112/76 06/28/2023 10:05 AM HOGSHEAD COOPER Pulse 59 06/28/2023 10:05 AM HOGSHEAD COOPER Temperature 36.3 C (97.3 F) 06/28/2023 10:05 AM HOGSHEAD COOPER Respiratory Rate 18 06/28/2023 10:0 5 AM HOGSHEAD COOPER Oxygen Saturation 99% 06/28/2023 10: 05 AM HOGSHEAD COOPER Inhaled Oxygen Concentration - - Weight 78.8 kg (173 lb 11.2 oz) 08/08/2024 8:09 AM CDT Height 175.3 cm (5' 9 ) 08/08/2024 8:09 AM CDT Body Mass Index 25.65 08/08/2024 8:09 AM CDT Plan of Treatment Not on file Goals Goal Patient Goal Type Associated Problems Recent Progress Patient-Stated? Author CCM Chronic Pain Care Plan Chronic Care Management No Goldie Saucedo, RN Note: Problem: Chronic Pain Goals: 1. Minimize further functional decline 2. Maximize quality of life 3. Control pain Strategies: - Activity/exercise program recommendation - Conservative stepwise pain medicine strategy with multi-disciplinary approach - Recommend healthy lifestyle strategies and compensatory methods as needed Reduce the likelihood of falling Lifestyle No Goldie Saucedo, RN Note: Below are four things you [...] on stairs Contact your local community or [facility] for information on exercise, fall prevention programs, or options for improving home safety. Medical Devices Implanted Type Area Plaster Applicator Device Identifier Shelf Expiration Date Model / Serial / Lot Medtronic Sofamor D[place] [id number] Infuse 20ga 2x1in Vial Absorbable Syringe Needle Medium Graft 5.6 - [id number] Implanted:Qty: 1 on 02/27/2019 by Reggie Starkey MD at [facility] N/A: Spine Lumbar Medtronic Inc 09/21/2020 [id number] / / [id number] [employer] 25-60-24 6mm 24mm Spine Lumbar Screw Bone Nonsterile - [id number] Implanted:Qty: 1 on 02/27/2019 by Reggie Starkey MD at [facility] N/A: Spine Lumbar [employer] 25-60-24 / / R[employer] Inc 34-I30-99-7 Contact Option Vbr [id number] Lordosis Back Cutting Teeth - [id number] Implanted:Qty: 1 on 02/27/2019 by Reggie Starkey MD at [facility] N/A: Spine Lumbar [employer] [id number] 05/10/2023 34-A30-14- 4 / / [id number] [employer] 25-Lp-38 38mm Spine Lumbar Anterior Plate Bone Nonsterile - [id number] Implanted:Qty: 1 on 02/27/2019 by Reggie Starkey MD at [facility] N/A: Spine Lumbar [employer] 25-LP-38 / / Cerapedics Inc 700-025 I Factor Allograft Putty Syringe Graft 2.5cc Bone - [id number] Implanted:Qty: 1 on 01/31/2020 by Reggie Starkey MD at [facility] Spine Cervical [employer] Inc [id number] 11/21/2022 700-025 / / [id number] Rti [employer] Inc 93-W-7575-8-6l Cage Spinal Fortilink-C Tetrafuse 6 D Lordotic D12mm W14mm X H8mm Sterile Latex Free - [id number] Implanted:Qty: 1 on 01/31/2020 by Reggie Starkey MD at [facility] Spine Cervical [employer] [id number] 65-C-1214- 8-6L / / Plate 1-Level 14 Mm Cervical - [id number] Implanted:Qty: 1 on 01/31/2020 by Reggie Starkey MD at [facility] Spine Cervical [employer] 30-0114 / / Screw 4.0x14mm Self Drilling Variable - [id number] Implanted:Qty: 4 on 01/31/2020 by Reggie Starkey MD at [facility] Spine Cervical [employer] 31-4014 / / Arthrex Inc Ar-2324bcc Swivelock C 4.75mm 19.1mm Closed Eyelet Vent [place] Suture - [id number] Implanted:Qty: 1 on 12/11/2020 by Ramakrishna Upton IV, MD at [facility] [place] Left: Shoulder Ar[employer] Inc 06/21/2024 AR-[id number] / / [id number] Ar[employer] Inc Ar-1927bcf Corkscrew Fiberwire Tigerwire 5.5mm 14.7mm [address] Mechanism Vent - [id number] Implanted:Qty: 1 on 12/11/2020 by Ramakrishna Upton IV, MD at [facility] [place] Left: Shoulder [employer] Inc 03/23/2023 [id number] / / [id number] Procedures Procedure Name Priority Date/Time Associated Diagnosis [...] Jung Robb M.D. MF: TATIANA Report ID: [id number] Reading Location: [id number] Procedure Note Jung Robb MD - 08/08/2024 [...] Jung Robb M.D. MF: TATIANA Report ID: [id number] Reading Location: [id number] us Demetri Bain DO IMG XR PROCEDURES Final Result from Last 3 Months Insurance [facility] MEDICARE ADVANTAGE [place] [id number] [facility] MEDICARE ADVANTAGE [place] [id number] [facility] MEDICARE ADVANTAGE [facility] MEDICARE ADVANTAGE M[employer] Advance Directives For more information, please contact: [phone] * Full Code (Latest Code Status on File) Date Activated Date Inactivated Comments 12/11/2020 12:08 PM 12/11/2020 5:30 PM * Full Code Date Activated Date Inactivated Comments 02/27/2019 4:43 PM 02/28/2019 5:37 PM * Full Code Date Activated Date Inactivated Comments 02/27/2019 4:43 PM 02/27/2019 4:43 PM * Full Code Date Activated Date Inactivated Comments 04/09/2018 2:17 PM 04/09/2018 5:48 PM Care Teams Shade Bander Relationship Specialty Start Date End Date Soniya Beauchamp MD [address] [place] [address] PCP - General Internal Medicine 05/05/20
--- OUTSIDE RECORDS SUMMARY | 2024-08-17 10:55 | XMS_ITS | Encounter Summary ---
Author Organization [facility] Address Count includes the [facility] [place] [address] Care Team Providers Care Marketing Communications Leader Name Role Phone Soniya Beauchamp MD Primary Care Provider [phone] Encounter Details Date Type Department Care Team (Late st Contact Info) Description 01/22/2018 Hospital Orders Only [facility] [place] [address] [phone] Yaritza Flores APNP [address] [place] [phone] Social History Tobacco Use Types Packs/Day Years Used Date Smoking Tobacco: Every Day Cigarettes 0.3 3 Smokeless Tobacco: Former Chew Comments:Patient verbalized understanding of smoking cessation. Has a script for Chantix, had to wait for second script, and began smoking again. Is not nicotine gum Alcohol Use Standard Drinks/Week Comments Yes 0 (1 standard drink = 0.6 oz [...] as of this encounter Plan of Treatment Not on file documented as of this encounter Visit Diagnoses Not on filedocumented in this encounter Care Teams Marketing Communications Leader Relationship Specialty Start Date End Date Soniya Beauchamp MD [address] [facility] [address] [place], [place] [phone] PCP - General INTERNAL MEDICINE 08/09/17 documented as of this encounter
== END 2024-08-17 10:50 | disposition home or self-care (01) ==
PROVIDERS: Visit Provider Orthopaedic Surgery
DX: S83.242A Other tear of medial meniscus, current injury, left knee, initial encounter (principal); X58.XXXA Exposure to other specified factors, initial encounter; M25.462 Effusion, left knee
CPT/HCPCS: 73721